=== PATIENT | female | born 1950 | race Caucasian/White ===

== ENCOUNTER 2020-11-08 12:27 | Outpatient (CLI) | payer MEDICARE, SELFPAY ==
[2020-11-08 13:34] LABS: Anion Gap 6 mmol/L (8-16); Blood Urea Nitrogen 19 mg/dL (7-17); Carbon Dioxide 31 mmol/L (22-30); Chloride 103 mmol/L (98-107); Estimated Glomerular Filt Rate 49; Glucose 163 mg/dL (65-105); Potassium 3.6 mmol/L (3.4-5.0); Sodium 140 mmol/L (137-145)
== END 2020-11-08 12:28 | disposition home or self-care (01) ==
PROVIDERS: PCP Physician Assistant; Visit Provider Nurse Practitioner Adult Health
DX: I50.22 Chronic systolic (congestive) heart failure (principal)
CPT/HCPCS: 36415; 80048

== ENCOUNTER 2021-09-30 10:29 | Emergency (ER) | payer MEDICARE, SELFPAY ==
--- NOTE | ~2021-09-30 | XR_ITS ---
EXAMINATION: XR chest 1V portable DATE: 09/30/2021 11:53 INDICATION: Cough and dyspnea TECHNIQUE: frontal view of the chest was obtained. COMPARISON: Chest radiograph dated 07/06/[address] dated 08/04/2019 FINDINGS: Opacity along the inferior right heart border which appears to correspond to small paracardial fat pa d on prior CT. No other airspace opacities, pulmonary edema, pleural effusion or pneumothorax. Heart size within normal limits for AP technique. Moderate degenerative skeletal changes at the bilateral s houlders. IMPRESSION: 1. No acute cardiopulmonary disease. Reviewed, dictated and finalized at location [facility]. SETTER HELPER
[2021-09-30 10:40] VITALS: BP 145/67; PULSE 98; RESP 22; TEMP 37.5; O2SAT 92
--- NOTE | 2021-09-30 11:26 | ED.URI ---
HPI - URI/Sore Throat General Chief Complaint: Upper Respiratory Infection Stated Complaint: sob Time Seen by Provider: 09/30/21 11:26 Source: patient Mode of arrival: wheelchair Limitations: no limitations History of Present Illness HPI Narrative: Patient is a 71-year-old female presenting for evaluation of multiple symptoms including fever, shortness of breath, sore throat, myalgias. Patient states she has been feeling unwell over the past week. Initial sick contact with her son-in-law who she states tested negative for Covid. Patient's daughter has also been sick with similar symptoms. Patient has been vaccinated but has not received booster vaccination. She reports fever of 101 Fahrenheit at home, dry cough with shortness of breath and wheezing. Patient reports shortness of breath worsens with exertion. She denies leg swelling but reports myalgias and bilateral calf pain. She denies chest or abdominal pain. She denies diarrhea. She denies loss of sense of taste or smell. She does report aching right ear pain without discharge from the ear. No swelling behind the ear. No swollen lymph nodes that she has noticed. She also reports sore throat and rhinorrhea. Related Data Home Medications Medication Instructions Recorded Confirmed Entresto 1 tablet PO DAILY 08/11/19 08/15/19 Xarelto 20 mg PO QPM 08/11/19 08/15/19 cyanocobalamin (vitamin B-12) 1,000 mcg PO DAILY 08/11/19 08/15/19 duloxetine 60 mg PO QNOON 08/11/19 08/15/19 furosemide 40 mg PO DAILY 08/11/19 08/15/19 metformin 500 mg PO DAILY 08/11/19 08/15/19 metoprolol succinate 25 mg PO DAILY 08/11/19 08/15/19 Allergies Allergy/AdvReac Type Severity Reaction Status Date / Time Cephalosporins Allergy Severe Rash/swelli Verified 08/15/19 11:12 ng Penicillins Allergy Severe RASH/SWELLI Verified 08/15/19 11:12 NG Review of Systems Review of Systems: CONSTITUTIONAL: Reports fever and chills EYES: Denies visual changes, redness, or discharge. ENT: Reports rhinorrhea, congestion, sore throat, right ear pain CARDIOVASCULAR: Denies chest pain, palpitations, or edema. RESPIRATORY: Reports cough and shortness of breath GASTROINTESTINAL: Denies abdominal pain, reports nausea, denies diarrhea GENITOURINARY: Denies dysuria or hematuria. SKIN: Denies rash or itching. MUSCULOSKELETAL: Denies back pain, joint pain, reports myalgias NEUROLOGIC: Denies headache, numbness, reports feeling diffusely weak PMFSH Past Medical History Medical History Atrial fibrillation CHF (congestive heart failure) Depression Diabetes type 2, controlled Hypertension Renal stones Exam Narrative: GENERAL: Awake, alert, fatigued appearing HEAD: Normocephalic, atraumatic. EYES: PERRLA and EOMI. ENT: Nares clear, no rhinorrhea or epistaxis. Mucous membranes dry. Right TM is normal without perforation, bulging, effusion. Left TM is also normal with intact light reflex, no bulging, perforation or effusion. NECK: Supple. CHEST: No respiratory distress, oxygen saturation 90 to 92% on room air, when sitting, decreases to 90%, no significant tachypnea, coarse expiratory wheezing bilaterally HEART: Borderline tachycardic rate, sinus rhythm ABDOMEN:Non distended, non tender EXTREMITIES: Normal range of motion. No edema. SKIN: Warm, dry, no rash. NEURO:No focal deficits. Alert and oriented x3 Course Vital Signs Vital signs: Vital Signs Temperature 37.5 C 09/30/21 10:40 Pulse Rate 98 09/30/21 10:40 Respiratory Rate 22 H 09/30/21 10:40 Blood Pressure 145/67 H 09/30/21 10:40 Pulse Oximetry 92 09/30/21 10:40 Temperature 37.5 C 09/30/21 10:40 Pulse Rate 89 09/30/21 12:03 Respiratory Rate 18 09/30/21 12:03 Blood Pressure 145/67 H 09/30/21 10:40 Pulse Oximetry 92 09/30/21 10:40 MDM - URI/Sore Throat MDM Narrative Medical decision making narrative: Patient presented for evaluation of shortness of amilcar
--- NOTE | 2021-09-30 11:35 | ECG_ITS ---
Measurements Intervals [place] Rate: 87 P: 53 AR: 140 QRS: -26 QRSD: 123 T: 73 QT: 354 QTc: 427 Interpretive Statements SINUS RHYTHM LEFT BUNDLE BRANCH BLOCK BASELINE ARTIFACT- I, III, AVL ABNORMAL ECG Electronically Signed On 09-30-2021 11:54:22 [employer] by Nikolay Leong D.O.
[2021-09-30 11:53] LABS: Basophils Percent Auto 0.2 % (0.2-1.2); Eosinophils Percent Auto 0.2 % (0-4.4); Hematocrit 40.5 % (37.0-47.0); Hemoglobin 13.2 g/dL (12.0-15.0); Immature Granulocyte Absolute 0.02 K/mm3 (0.00-0.031); Immature Granulocyte Percent A 0.3 % (0-0.5); Lymphocytes Absolute Auto 1.24 K/mm3 (0.9-3.2); Lymphocytes Percent Auto 21.1 % (18.3-44.2); Mean Corpuscular HGB Conc 32.6 g/dl (32-36); Mean Corpuscular Hemoglobin 28.4 pg (26-34); Mean Corpuscular Volume 87.3 fl (80-100); Mean Platelet Volume 9.5 fl (7.4-10.4); Monocytes Absolute Auto 0.8 K/mm3 (0.1-0.6); Monocytes Percent Auto 13.6 % (2.6-8.5); Neutrophils Absolute Auto 3.8 K/mm3 (1.3-6.7); Neutrophils Percent Auto 64.6 % (45.5-73.1); Platelet Count Result 176 k/mm3 (150-375); Red Blood Count 4.64 M/mm3 (4.2-5.4); Red Cell Distribution Width 13.2 % (11.5-14.5); White Blood Count 5.9 K/mm3 (4.5-10.0)
[2021-09-30] MEDS: IPRATROPIUM BR 0.02% INH SOLN 0.5 MG/2.5 ML VIAL INHALATION (11:54)
[2021-09-30] MEDS: ALBUTEROL SULFATE NEB 2.5 MG/0.5 ML INH 5 MG INHALATION (11:54)
[2021-09-30 11:55] VITALS: PULSE 87; RESP 18
[2021-09-30 12:03] VITALS: PULSE 89; RESP 18
[2021-09-30 12:06] LABS: Alanine Aminotransferase 11 U/L (4-35); Albumin Level 3.9 g/dL (3.5-5.1); Alkaline Phosphatase 75 U/L (38-126); Anion Gap 12 mmol/L (8-16); Aspartate Amino Transferase 26 U/L (14-36); Bilirubin,Total 0.6 mg/dL (0.2-1.3); Blood Urea Nitrogen 10 mg/dL (7-17); CRP 7.4 mg/dL (<1.0); Calcium 8.6 mg/dL (8.4-10.2); Carbon Dioxide 22 mmol/L (22-30); Chloride 103 mmol/L (98-107); Estimated Glomerular Filt Rate 55; Glucose 157 mg/dL (65-110); Potassium 3.4 mmol/L (3.4-5.0); Sodium 137 mmol/L (137-145)
[2021-09-30 12:12] LABS: D Dimer 0.88 ug/mL (<0.48)
[2021-09-30 12:15] LABS: EDCOVIDSCREEN Positive (Negative)
[2021-09-30 12:16] LABS: NT Pro B Type Natriuretic Pept 459 pg/mL (5-100); Troponin I 0.023 ng/mL (0.000-0.034)
--- NOTE | 2021-09-30 12:46 | PC.NURSE ---
entered patients room to start iv and found patient sitting in chair fully redressed. patient states she wants no further testing and just wants to go home. patient requested to be put into a wheelchair and taken to door to wait for her ride. refused to sign AMA papers or to stay for further treatment or to talk to erp
== END 2021-09-30 13:09 | disposition left against medical advice (07) ==
PROVIDERS: Emergency Provider Emergency Medicine; PCP Physician Assistant
DX: U07.1 COVID-19 (principal); R06.00 Dyspnea, unspecified; E11.9 Type 2 diabetes mellitus without complications; I50.9 Heart failure, unspecified; I11.0 Hypertensive heart disease with heart failure; I48.91 Unspecified atrial fibrillation; Z87.442 Personal history of urinary calculi; Z79.01 Long term (current) use of anticoagulants; Z79.84 Long term (current) use of oral hypoglycemic drugs; I44.7 Left bundle-branch block, unspecified
CPT/HCPCS: 36415; 71045; 80053; 83880; 84484; 85025; 85380; 86140; 87081; 87426; 87804; 87880; 93005; 94640; 99284; C9803

== ENCOUNTER 2021-10-02 15:33 | Inpatient (IN) | payer MEDICARE, SELFPAY ==
--- NOTE | ~2021-10-02 | CT_ITS ---
EXAMINATION: CTA chest PE protocol DATE: 10/03/2021 02:46 INDICATION: Shortness of breath. Elevated d-dimer. TECHNIQUE: Computed tomography angiography (CTA) of the chest was performed with 100 mL Omnipaque-350 intravenous contrast timed to evaluate the pulmonary arteries. Coronal maximum intensity projection 3D-reconstructions were created by the technologist. Automated exposure control and iterative reconst ruction technique were employed. Exam dose: 728.64 mGy-cm total exam DLP. COMPARISON: 10/03/2021 portable AP chest 01/12/2016 CTA chest FINDINGS: There is diagnostic contrast enhancement of the pulmonary arteries and no evidence of pulmo nary embolism. No thoracic aortic aneurysm or dissection. Normal heart size. No pericardial or pleural effusion. No hilar or mediastinal mass lesion or lymphadenopathy. There are scattered patchy bilateral groundglass infiltrate, including foci in both upper lobes and d ependent lower aspect of the left lower lobe and more extensive infiltrate throughout much of the rig ht lower lobe. Couple small nonobstructing left kidney stones are suggested. Normal morphology of the adrenal glands. Diffuse idiopathic skeletal hyperostosis of the cervical, thoracic and lumbar spine. No suspicious osteolytic or osteoblastic lesions. IMPRESSION: Bilateral pulmonary infiltrates, right greater left, suggesting viral Covid pneumonia No CT evidence of pulmonary embolism Reviewed, dictated and finalized at [facility]. Reviewed, dictated and finalized at location A. HIC ILLUSTRATOR IMPRESSION: Bilateral pulmonary infiltrates, right greater left, suggesting vi ral Covid pneumonia No CT evidence of pulmonary embolism
--- NOTE | ~2021-10-02 | XR_ITS ---
XR chest 1V portable DATE: 10/03/2021 00:52 INDICATION: Chest pain, Covid-positive. History of hypertension. TECHNIQUE: Portable upright AP chest on 10/03/2021 0047 hours COMPARISON: 10/17/2021 portable AP chest at 1147 hours FINDINGS: Heart size appears within normal range. No hilar or mediastinal enlargement. Possible mild infiltrate or atelectasis primarily in the lower lung zones. No pleural effusion, pulmo nary vascular congestion or pneumothorax is evident. Diffuse osteopenia. Osteoarthritis at right glenohumeral joint. Degenerative change at the right acro mioclavicular joint. IMPRESSION: Possible mild infiltrate or atelectasis primarily in the lower lung zones Reviewed, dictated and finalized at location A. STOS CEMENT SHEET SUPERVISOR
[2021-10-02 15:51] VITALS: BP 145/83; PULSE 85; RESP 16; TEMP 36.7; O2SAT 93
[2021-10-02 19:13] VITALS: BP 162/80; PULSE 85; TEMP 36.5; O2SAT 96
[2021-10-02 22:27] VITALS: BP 149/67; PULSE 92; O2SAT 92
[2021-10-03] VITALS (15 sets, daily range): BP systolic 96–146; BP diastolic 33–84; PULSE 72–97; RESP 16–34; TEMP 36.2–38; O2SAT 87–99; BMI 42.3
--- NOTE | 2021-10-03 00:40 | ED.GENADULT ---
HPI - General Adult General Chief complaint: Upper Respiratory Infection Stated complaint: COVID + SOB Time Seen by Provider: 10/03/21 00:38 Source: patient Mode of arrival: EMS Limitations: no limitations History of Present Illness HPI narrative: Patient is a 71-year-old female complaining of shortness of breath, worse with exertion accompanied by generalized weakness, fatigue, body aches that started 3 days ago. Patient states that she was diagnosed with Covid pneumonia 3 days ago and was advised to be admitted but refused. Patient denies any chest pain, abdominal pain, nausea, vomiting, diarrhea, fever or chills. Related Data Allergies Allergy/AdvReac Type Severity Reaction Status Date / Time Penicillins Allergy Hives Verified 10/03/21 00:40 Review of Systems Review of Systems: All systems reviewed & are unremarkable except as noted in HPI and below Constitutional: Constitutional: Denies chills, Denies excessive sweating, Denies fever(s), Denies headache(s), Denies lethargy and Denies weight loss Eyes: Eyes: Denies blurry vision, Denies change in vision and Denies loss of vision ENT: Denies dizziness, Denies ear discharge, Denies headache(s), Denies lip swelling, Denies epistaxis, Denies nasal congestion, Denies neck pain, Denies throat swelling and Denies tongue swelling Cardiovascular: Cardiovascular: Denies chest pain, Denies chest pain at rest, Denies chest pain with activity, Denies diaphoresis, Denies rapid heart rate, Denies edema, Denies irregular heart rhythm, Denies lightheadedness and Denies palpitations Respiratory: Respiratory: Denies chest congestion and Denies hemoptysis Gastrointestinal: Gastrointestinal: Denies abdominal pain, Denies melena, Denies hematochezia, Denies diarrhea, Denies nausea, Denies vomiting and Denies hematemesis Musculoskeletal: Musculoskeletal: Denies abnormal gait, Denies deformity, Denies joint swelling, Denies limited range of motion, Denies neck pain and Denies numbness Neurologic: Denies Abnormal speech present, Denies abnormal gait, Denies confusion, Denies dizziness, Denies headache(s), Denies focal weakness, Denies loss of vision, Denies numbness, Denies Other visual disturbances, Denies Sensory deficit (Neuro) and Denies weakness Psychiatric: Psychiatric: Denies confusion, Denies depression, Denies auditory hallucinations, Denies homicidal ideation and Denies suicidal ideation Endocrine: Endocrine: Denies cold intolerance, Denies excessive sweating, Denies fatigue, Denies heat intolerance and Denies palpitations Hematologic/Lymphatic: Hematologic/Lymphatic: Denies easy bleeding and Denies easy bruising Allergic/Immunologic: Allergic/Immunologic: Denies lip swelling, Denies throat swelling and Denies tongue swelling PMFSH Comments Past medical history: Hypertension, congestive heart failure Family history: Hypertension Social history: Non-smoker no EtOH use, lives at home Exam Const: General: ill appearing Nutritional Appearance: well nourished Orientation/consciousness: oriented to person, oriented to place, oriented to time, patient oriented x3 and No confusion Limitations: no limitations Other: Moderate distress HENMT: Head: normal to inspection, normocephalic and atraumatic Ears: hearing grossly normal bilaterally, TM normal on the right and TM normal on the left General nose exam: Normal external nose present, Normal nares present and No nasal discharge present Face and sinus: normal facial exam Mouth: Yes Normal oral and palatal mucosa present, Yes lip normal, Yes tongue normal and Yes oropharynx normal Throat: posterior oropharynx normal, tonsils normal and uvula midline Eyes: General: appearance normal, both eyes and all related structures Pupils: Equal, round and reactive pupils present EOM: EOMs intact bilaterally Neck: Neck: normal visual inspection, full ROM, no lymphadenopathy and no meningeal signs Chest: Chest palpation & inspection: normal inspection of the
[2021-10-03] MEDS: ALBUTEROL SULFATE NEB 2.5 MG/0.5 ML INH 5 MG INHALATION ×3 (01:21→14:37)
[2021-10-03] MEDS: IPRATROPIUM BR 0.02% INH SOLN 0.5 MG/2.5 ML VIAL INHALATION ×3 (01:21→14:37)
[2021-10-03 01:52] LABS: Basophils Percent Auto 0.2 % (0.2-1.2); Hematocrit 39.9 % (37.0-47.0); Immature Granulocyte Absolute 0.01 K/mm3 (0.00-0.031); Immature Granulocyte Percent A 0.2 % (0-0.5); Lymphocytes Absolute Auto 1.34 K/mm3 (0.9-3.2); Lymphocytes Percent Auto 26.6 % (18.3-44.2); Mean Corpuscular HGB Conc 32.6 g/dl (32-36); Mean Corpuscular Hemoglobin 28.4 pg (26-34); Mean Corpuscular Volume 87.3 fl (80-100); Mean Platelet Volume 10.4 fl (7.4-10.4); Monocytes Absolute Auto 0.5 K/mm3 (0.1-0.6); Monocytes Percent Auto 9.9 % (2.6-8.5); Neutrophils Absolute Auto 3.2 K/mm3 (1.3-6.7); Neutrophils Percent Auto 63.1 % (45.5-73.1); Platelet Count Result 201 k/mm3 (150-375); Red Blood Count 4.57 M/mm3 (4.2-5.4); Red Cell Distribution Width 13.5 % (11.5-14.5)
[2021-10-03 02:03] LABS: D Dimer 0.88 ug/mL (<0.48)
[2021-10-03 02:04] LABS: Lactic Acid Reflex 1.3 mmol/L (0.7-2.1)
[2021-10-03 02:08] LABS: Alanine Aminotransferase 11 U/L (4-35); Albumin Level 4.1 g/dL (3.5-5.1); Alkaline Phosphatase 66 U/L (38-126); Anion Gap 12 mmol/L (8-16); Aspartate Amino Transferase 34 U/L (14-36); Bilirubin,Total 0.7 mg/dL (0.2-1.3); Blood Urea Nitrogen 9 mg/dL (7-17); Calcium 8.7 mg/dL (8.4-10.2); Carbon Dioxide 27 mmol/L (22-30); Chloride 99 mmol/L (98-107); Estimated CRCL calculation 58 ml/min; Estimated Glomerular Filt Rate > 60; Glucose 119 mg/dL (65-110); Potassium 3.3 mmol/L (3.4-5.0); Sodium 138 mmol/L (137-145)
[2021-10-03 02:14] LABS: NT Pro B Type Natriuretic Pept 168 pg/mL (5-100)
[2021-10-03 02:18] LABS: Troponin I 0.017 ng/mL (0.000-0.034)
[2021-10-03] MEDS: POTASSIUM CHLORIDE 20 MEQ PACKET (FOR LIQUID) PO (03:12)
[2021-10-03 04:49] LABS: Alveolar/Arterial O2 Gradient 96.1 mmHg; Base Excess ABG -2.5 mEq/l (+/-2.0); Fractional Inspired Oxygen 28 %; HCO3 ABG 21.7 mEq/l (22.0-26.0); Methemoglobin ABG 0.4 %THb (0-1.5); Oxygen Saturation ABG 91.8 % (95.0-100.0); Oxyhemoglobin 91.4 % THb (90.0-100.0); PCO2 ABG 35.6 mmHg (35.0-45.0); PO2 ABG 61.5 mmHg (80.0-100.0); Reduced Hemoglobin 8.2 %THb (0-5.0); Total Hemoglobin 13.2 g/dL (12.0-18.0); pH ABG 7.402 (7.350-7.450)
[2021-10-03 04:50] LABS: Device NASAL CANNULA; Modified Allen's Test Pass; Site Drawn LEFT RADIAL
--- NOTE | 2021-10-03 04:54 | PM.IMHP ---
H&P: HPI History of Present Illness Date/Time: 10/03/21 04:54 Chief Complaint: Generalized malaise. Narrative: This is a 71-year-old female with past medical history significant for morbid obesity. Patient presents to the emergency room due to generalized malaise, fatigue, shortness of breath, cough, poor appetite, body aches and pains, chills ,fevers, Meds Home Medications and Allergies Allergies Allergy/AdvReac Type Severity Reaction Status Date / Time Penicillins Allergy Hives Verified 10/03/21 00:40 Vital Signs Vital Signs - 24 hr 10/02/21 15:51 10/02/21 19:13 10/02/21 22:27 Temperature 98.1 F 97.7 F Pulse Rate 85 85 92 Respiratory Rate 16 Blood Pressure 145/83 H 162/80 H 149/67 H Pulse Oximetry 93 96 92 10/03/21 00:29 10/03/21 01:16 10/03/21 01:25 Temperature 98.8 F Pulse Rate 97 91 95 Respiratory Rate 22 H 34 H 21 H Blood Pressure 142/58 H 146/69 H Pulse Oximetry 95 95 10/03/21 01:40 10/03/21 03:04 10/03/21 04:00 Temperature Pulse Rate 97 93 89 Respiratory Rate 28 H 20 26 H Blood Pressure 115/53 L 108/56 L Pulse Oximetry 93 87 L H&P: Results Labs Labs: Short CBC 10/03/21 Range/Units 01:21 WBC 5.0 (4.5-10.0) K/mm3 Hgb 13.0 (12.0-15.0) g/dL Hct 39.9 (37.0-47.0) % Plt Count 201 (150-375) k/mm3 [facility] 10/03/21 01:21 Sodium 138 Potassium 3.3 L Chloride 99 Carbon Dioxide 27 BUN 9 Creatinine 0.90 Glucose 119 H Calcium 8.7 Cardiac Enzymes 10/03/21 Range/Units 01:21 Troponin I 0.017 (0.000-0.034) ng/mL Liver Function 10/03/21 Range/Units 01:21 Total Bilirubin 0.7 (0.2-1.3) mg/dL AST 34 (14-36) U/L ALT 11 (4-35) U/L Alkaline Phosphatase 66 (38-126) U/L Albumin 4.1 (3.5-5.1) g/dL Assessment and Plan Assessment and plan (1) Acute respiratory failure with hypoxia: Code(s): J96.01 - Acute respiratory failure with hypoxia Status: Acute Assessment and Plan: Patient placed on supplemental oxygen by nasal cannula Continue to monitor Trend keep oxygen saturation at 94% (2) Pneumonia due to 2019 novel coronavirus: Code(s): U07.1 - COVID-19; J12.82 - Pneumonia due to coronavirus disease 2019 Status: Acute Assessment and Plan: Patient started on Rocephin and Zithromax Started on remdesivir and dexamethasone Supportive care (3) Morbid obesity with BMI of 40.0-44.9, adult: Code(s): E66.01 - Morbid (severe) obesity due to excess calories; Z68.41 - Body mass index [BMI] 40.0-44.9, adult Status: Acute Assessment and Plan: Lifestyle and diet modifications
--- NOTE | 2021-10-03 05:27 | PM.IMHP ---
H&P: HPI History of Present Illness Date/Time: 10/03/21 05:27 Chief Complaint: Generalized malaise. Narrative: This is a 71-year-old female with past medical history significant for type 2 diabetes mellitus, morbid obesity, patient presented to the emergency room due to generalized malaise, poor appetite, chills, fevers. She had been to the emergency room 3 days ago and she tested positive for COVID but refused to be admitted to the hospital now she returns due to worsening shortness of breath and fatigue. In emergency room preliminary testing showed an elevated D-dimer a CT angio of the chest did not show acute pulmonary embolism but showed ground-glass opacities present in both lung voss. Patient denies any nausea, any vomiting, any abdominal pain, any diarrhea, any syncope, near syncope, lightheadedness, dizziness. In emergency room patient require supplemental oxygen by nasal cannula. Patient is been admitted for further evaluation management and treatment Review of Systems Review of Systems: Generalized malaise fevers rigors chills poor appetite Constitutional: Constitutional: Reports chills, Reports fatigue, Reports fever(s), Reports lethargy, Reports malaise and Reports poor appetite Eyes: Eyes: Denies change in vision ENT: Denies dysphagia, Denies nasal congestion, Denies nasal discharge, Denies nasal obstruction and Denies odynophagia Cardiovascular: Cardiovascular: Denies pedal edema, Denies edema, Denies claudication, Denies leg edema, Denies lightheadedness, Denies radiating jaw, neck or arm pain, Denies palpitations, Denies dyspnea on exertion and Denies orthopnea Respiratory: Respiratory: Denies change in phlegm color, Reports cough, Denies excessive phlegm production and Reports dyspnea Gastrointestinal: Gastrointestinal: Denies abdominal pain, Denies dyspepsia, Denies heartburn, Denies diarrhea, Denies nausea and Denies vomiting Genitourinary: Genitourinary: Denies dysuria Musculoskeletal: Musculoskeletal: Denies arthralgias and Denies joint swelling Integumentary/Breasts: Skin/Breast: Denies rash Neurologic: Denies focal weakness and Denies Sensory deficit (Neuro) Psychiatric: Psychiatric: Reports no additional psychiatric complaints and Reports as per HPI Endocrine: Endocrine: Denies polydipsia, Denies polyuria and Denies palpitations Hematologic/Lymphatic: Hematologic/Lymphatic: Reports no additional hematologic/lymphatic complaints and Reports as per HPI Allergic/Immunologic: Allergic/Immunologic: Reports no additional allergic/immunologic complaints and Reports as per HPI Meds Home Medications and Allergies Allergies Allergy/AdvReac Type Severity Reaction Status Date / Time Penicillins Allergy Hives Verified 10/03/21 00:40 Vital Signs Vital Signs - 24 hr 10/02/21 15:51 10/02/21 19:13 10/02/21 22:27 Temperature 98.1 F 97.7 F Pulse Rate 85 85 92 Respiratory Rate 16 Blood Pressure 145/83 H 162/80 H 149/67 H Pulse Oximetry 93 96 92 10/03/21 00:29 10/03/21 01:16 10/03/21 01:25 Temperature 98.8 F Pulse Rate 97 91 95 Respiratory Rate 22 H 34 H 21 H Blood Pressure 142/58 H 146/69 H Pulse Oximetry 95 95 10/03/21 01:40 10/03/21 03:04 10/03/21 04:00 Temperature Pulse Rate 97 93 89 Respiratory Rate 28 H 20 26 H Blood Pressure 115/53 L 108/56 L Pulse Oximetry 93 87 L 10/03/21 05:14 Temperature Pulse Rate 82 Respiratory Rate 24 H Blood Pressure 129/74 Pulse Oximetry 96 Exam Narrative: Patient is laying in rkemmerer Const: General: cooperative, comfortable, no acute distress, well developed, alert, awake, Physically active and ill appearing acutely Nutritional Appearance: obese morbidly obese Orientation/consciousness: patient oriented x3 HENMT: Head: normal to inspection, normocephalic and atraumatic Ears: hearing grossly normal bilaterally General nose exam: Normal external nose present Face and sinus: normal facial exam Mouth: Yes Normal oral and palatal muc
--- NOTE | 2021-10-03 06:00 | ADMGEN ---
This patient, Lillie Brito, was admitted to [facility] Surg Room 329-01. Patient/family oriented to hospital policies and general routines including ID bracelet, bed and alarms, visiting hours, pain management, procedures, bathroom and other care routines, personal items, smoking policy, room service/diet, and visiting hours. Information on how to activate the Rapid Response Team has been discussed. Patient/Family are encouraged to report perceived risks to care and to ask questions if they do not understand what they are told or what they should do.
[2021-10-03] MEDS: REMDESIVIR 200 MG/NS 250 ML 200 MG/250 ML BAG 250 MG IVPB (06:43)
[2021-10-03 07:21] LABS: Alanine Aminotransferase 10 U/L (4-35); Estimated CRCL calculation 58 ml/min; Estimated Glomerular Filt Rate > 60
[2021-10-03 07:27] LABS: INR 1.5; Prothrombin Time 17.5 Seconds (11.1-14.7)
[2021-10-03 08:17] LABS: Glucose Point of Care 214 mg/dl (65-105)
[2021-10-03 11:24] LABS: Hemoglobin A1C 7.5 % (<5.7)
[2021-10-03 11:39] LABS: CRP 13.5 mg/dL (<1.0); Lactate Dehydrogenase 750 U/L (313-618)
[2021-10-03 11:41] LABS: Glucose Point of Care 336 mg/dl (65-105)
--- NOTE | 2021-10-03 12:10 | PM.IMPN ---
Progress Note: A&P Assessment and Plan (1) Acute respiratory failure with hypoxia: Code(s): J96.01 - Acute respiratory failure with hypoxia Status: Acute Assessment and Plan: Found to be hypoxic on presentation down 87%. Secondary to COVID-19 pneumonia. CTA negative for PE. Continue supplemental O2 as needed with goal saturation 92% or above. Wean to goal. Currently requiring 1 L per nasal cannula (2) Pneumonia due to 2019 novel coronavirus: Code(s): U07.1 - COVID-19; J12.82 - Pneumonia due to coronavirus disease 2019 Status: Acute Assessment and Plan: Positive antigent on 09/30/21 with symptom onset 4 days prior. CTA shows bilateral pulmonary infiltrates Continue isolation precautions Proceed with confirmatory PCR testing Continue dexamethasone and remdesivir, 1st dose today. Monitor LFTs well on remdesivir Supportive care to include bronchodilators, expectorants, antipyretics, incentive spirometry Trend acute phase reactants Will discontinue azithromycin at this time as no signs or symptoms to suggest secondary bacterial pneumonia She did complete vaccination for COVID-19 but has not received booster yet (3) CHF (congestive heart failure): Code(s): I50.9 - Heart failure, unspecified Status: Acute Assessment and Plan: She appears generally euvolemic on exam. Continue furosemide 40 mg daily Continue metoprolol and Entresto Monitor volume status (4) Atrial fibrillation: Code(s): I48.91 - Unspecified atrial fibrillation Status: Acute Assessment and Plan: Rate is controlled at this time Continue Xarelto Continue metoprolol (5) Type 2 diabetes mellitus: Code(s): E11.9 - Type 2 diabetes mellitus without complications Status: Acute Assessment and Plan: A1c is 7.5. Blood sugars are elevated with addition of steroids Will initiate Lantus while on steroids Start Accu-Cheks, high-dose sliding scale insulin, hypoglycemic protocol Consider addition of scheduled NovoLog with meals if blood sugars remain elevated Monitor glucose trends and adjust medication regimen as needed Subjective Date/time seen: 10/03/21 12:10 Interval history: Date of service: 10/03/2021 Lillie Brito is a 71-year-old female is a 71 year old female with a history of diabetes mellitus, CHF, atrial fibrillation on chronic anticoagulation who is seen in follow-up for COVID-19 pneumonia. She is feeling a little bit better today. Still with dyspnea that she notices is worse if she gets up and moves around. She has been able to ambulate with her walker but activity does make her more short of breath. She is coughing and endorses phlegm but has not been able to get anything up. She denies nausea, vomiting, fever, or chills. No palpitations. Denies chest pain. She has been eating fairly well. Denies anosmia or dysgeusia. She did have diarrhea this morning. No abdominal pain. No urinary symptoms. Review of Systems Review of Systems: All systems reviewed & are unremarkable except as noted in HPI and below Exam Narrative: Ms. Brito is an obese, well-appearing 71-year-old female who is sitting up at the bedside. She appears comfortable and is in NARD. Neuro: awake, alert and oriented x4, speech clear, no focal neuro deficits noted HEENMT: normocephalic, atraumatic, EOMI, sclerae anicteric Neck: supple, no lymphadenopathy Respiratory: clear to auscultation bilaterally, nonlabored breathing Cardio: regular rate, regular rhythm with S1-S2 Abdomen: Obese, normoactive bowel sounds, soft, nontender to palpation Extremities: Trace edema of the lower extremities, no erythema or tenderness to palpation, DP pulses 2+ bilaterally Skin: no rashes or lesions, warm and dry Psych: appropriate mood and affect, judgment and insight intact Objective Data Vital Signs Vital Signs: Vital Signs - 24 hr 10/02/21 15:51 10/02/21 19:13
[2021-10-03] MEDS: METOPROLOL SUCCINATE EXT REL 25 MG TABCR PO (13:01)
[2021-10-03] MEDS: FUROSEMIDE 40 MG TABLET PO (13:02)
[2021-10-03] MEDS: guaiFENesin 12 HR 600 MG TABCR PO ×2 (13:02→20:47)
[2021-10-03] MEDS: metFORMIN HCL XR 500 MG TAB.SR.24H PO (13:02)
[2021-10-03 17:12] LABS: Glucose Point of Care 268 mg/dl (65-105)
[2021-10-03] MEDS: INSULIN ASPART (*BKC) 100 UNITS/ML SUB-Q (17:47)
[2021-10-03] MEDS: RIVAROXABAN 20 MG TABLET PO (17:48)
[2021-10-03] MEDS: INSULIN GLARGINE (*BKC) 100 UNITS/ML 16 UNITS SUB-Q (20:50)
[2021-10-03 21:45] LABS: Glucose Point of Care 211 mg/dl (65-105)
--- NOTE | 2021-10-03 23:31 | PCRCNOTE ---
Nebulizer treatment scheduled for 10/03/21 at 20:00 not administered. RT not available during administration window due to priorities in Emergency Department.
[2021-10-04] VITALS (12 sets, daily range): BP systolic 113–140; BP diastolic 52–60; PULSE 66–91; RESP 16–22; TEMP 36.5–36.9; O2SAT 94–97
[2021-10-04] MEDS: IPRATROPIUM BR 0.02% INH SOLN 0.5 MG/2.5 ML VIAL INHALATION ×3 (02:32→19:31)
[2021-10-04] MEDS: ALBUTEROL SULFATE NEB 2.5 MG/0.5 ML INH 5 MG INHALATION ×3 (02:32→19:31)
[2021-10-04] MEDS: DEXAMETHASONE 2 MG TABLET 6 MG PO (05:14)
[2021-10-04] MEDS: LEVOTHYROXINE SODIUM 25 MCG TABLET PO (05:14)
[2021-10-04 07:23] LABS: Hematocrit 38.1 % (37.0-47.0); Hemoglobin 12.1 g/dL (12.0-15.0); Mean Corpuscular HGB Conc 31.8 g/dl (32-36); Mean Corpuscular Hemoglobin 28.1 pg (26-34); Mean Corpuscular Volume 88.4 fl (80-100); Mean Platelet Volume 9.5 fl (7.4-10.4); Platelet Count Result 217 k/mm3 (150-375); Red Blood Count 4.31 M/mm3 (4.2-5.4); Red Cell Distribution Width 13.4 % (11.5-14.5); White Blood Count 7.7 K/mm3 (4.5-10.0)
[2021-10-04 07:34] LABS: INR 2.2; Prothrombin Time 23.8 Seconds (11.1-14.7)
[2021-10-04 08:18] LABS: Glucose Point of Care 232 mg/dl (65-105)
[2021-10-04 08:49] LABS: Alanine Aminotransferase 12 U/L (4-35); Albumin Level 3.4 g/dL (3.5-5.1); Alkaline Phosphatase 59 U/L (38-126); Anion Gap 6 mmol/L (8-16); Aspartate Amino Transferase 29 U/L (14-36); Bilirubin,Total 0.4 mg/dL (0.2-1.3); Blood Urea Nitrogen 21 mg/dL (7-17); CRP 8.2 mg/dL (<1.0); Calcium 9.1 mg/dL (8.4-10.2); Carbon Dioxide 30 mmol/L (22-30); Chloride 103 mmol/L (98-107); Estimated CRCL calculation 54 ml/min; Estimated Glomerular Filt Rate 55; Glucose 239 mg/dL (65-110); Lactate Dehydrogenase 648 U/L (313-618); Potassium 3.8 mmol/L (3.4-5.0); Sodium 139 mmol/L (137-145)
[2021-10-04] MEDS: SACUBITRIL/VALSARTAN 49-51 MG TABLET 1 TABLET PO (08:50)
[2021-10-04] MEDS: metFORMIN HCL XR 500 MG TAB.SR.24H PO (08:50)
[2021-10-04] MEDS: METOPROLOL SUCCINATE EXT REL 25 MG TABCR PO (08:51)
[2021-10-04] MEDS: guaiFENesin 12 HR 600 MG TABCR PO ×2 (08:51→20:21)
[2021-10-04] MEDS: FUROSEMIDE 40 MG TABLET PO (08:51)
[2021-10-04] MEDS: INSULIN ASPART (*BKC) 100 UNITS/ML SUB-Q ×4 (08:51→18:21)
[2021-10-04 09:38] LABS: SARS-CoV-2 RNA PCR Positive
[2021-10-04] MEDS: REMDESIVIR 100 MG/NS 250 ML 100 MG/250 ML BAG 250 MG IVPB (11:26)
[2021-10-04 12:51] LABS: Glucose Point of Care 277 mg/dl (65-105)
--- NOTE | 2021-10-04 14:13 | PM.IMPN ---
Progress Note: A&P Assessment and Plan (1) Acute respiratory failure with hypoxia: Code(s): J96.01 - Acute respiratory failure with hypoxia Status: Acute Assessment and Plan: Found to be hypoxic on presentation down to 87%. Secondary to COVID-19 pneumonia. CTA negative for PE. Continue supplemental O2 as needed with goal saturation 92% or above. Wean to goal. Currently requiring 1 L per nasal cannula (2) Pneumonia due to 2019 novel coronavirus: Code(s): U07.1 - COVID-19; J12.82 - Pneumonia due to coronavirus disease 2019 Status: Acute Assessment and Plan: Positive antigent on 09/30/21 with symptom onset 4 days prior. Confirmatory PCR positive 10/04/21. CTA shows bilateral pulmonary infiltrates Continue isolation precautions Continue dexamethasone and remdesivir #2. Monitor LFTs while on remdesivir Supportive care to include bronchodilators, expectorants, antipyretics, incentive spirometry Trend acute phase reactants She did complete vaccination for COVID-19 but has not received booster yet (3) CHF (congestive heart failure): Code(s): I50.9 - Heart failure, unspecified Status: Acute Assessment and Plan: She appears euvolemic on exam. Continue furosemide 40 mg daily Continue metoprolol and Entresto Monitor volume status (4) Atrial fibrillation: Code(s): I48.91 - Unspecified atrial fibrillation Status: Acute Assessment and Plan: Rate is controlled at this time Continue Xarelto Continue metoprolol (5) Type 2 diabetes mellitus: Code(s): E11.9 - Type 2 diabetes mellitus without complications Status: Acute Assessment and Plan: A1c is 7.5. Blood sugars are elevated with addition of steroids Continue lantus while on steroids. Increase to 18 units qHS Add novolog 5 units scheduled with meals Accu-Cheks, high-dose sliding scale insulin, hypoglycemic protocol Monitor glucose trends and adjust medication regimen as needed (6) Nosebleed: Code(s): R04.0 - Epistaxis Status: Acute Assessment and Plan: Secondary to nasal swab Bleeding resolved [place] nasal spray for dry nasal passages Hgb is stable. Continue to monitor Subjective Date/time seen: 10/04/21 14:13 Interval history: Date of service: 10/04/2021 Lillie Brito is a 71-year-old female is a 71 year old female with a history of diabetes mellitus, CHF, atrial fibrillation on chronic anticoagulation who is seen in follow-up for COVID-19 pneumonia. She tells me that she had an eventful night last night. When she was being swabbed for COVID, she had a nose bleed that she said lasted for about 30 minutes. It sounds like she had a little clot that was dislodged and she had quite a bit of bleeding. She said someone came in to suction it and then it drain down her throat and she was spitting out some blood. Bleeding has resolved and she has not had any further episodes of nose bleeds. She denies any other bleeding including hemoptysis, hematuria, hematemesis, hematochezia, melena. She is feeling a bit more short of breath today and is coughing frequently. Cough is nonproductive. She endorses dyspnea on exertion. Also complains of dry mouth. She is eating and drinking well. Denies abdominal pain, nausea, vomiting, fever, chills, dizziness, lightheadedness, chest pain, palpitations. No further episodes of diarrhea. She has not had a bowel movement this morning. She asked me to call her daughter, Latoya to provide updates. I was not able to reach her but I left a message. Review of Systems Review of Systems: All systems reviewed & are unremarkable except as noted in HPI and below Exam Narrative: Ms. Brito is an obese, well-appearing 71-year-old female who is sitting up at the bedside. She appears comfortable and is in NARD. Neuro: awake, alert and oriented x4, speech clear, no focal neuro deficits noted HEENMT: normoc
[2021-10-04 16:57] LABS: Glucose Point of Care 229 mg/dl (65-105)
[2021-10-04] MEDS: RIVAROXABAN 20 MG TABLET PO (18:21)
[2021-10-04] MEDS: INSULIN GLARGINE (*BKC) 100 UNITS/ML 18 UNITS SUB-Q (20:22)
[2021-10-04 21:53] LABS: Glucose Point of Care 292 mg/dl (65-105)
[2021-10-05] VITALS (10 sets, daily range): BP systolic 100–138; BP diastolic 40–70; PULSE 54–76; RESP 14–22; TEMP 35.5–36.4; O2SAT 93–98
[2021-10-05] MEDS: LEVOTHYROXINE SODIUM 25 MCG TABLET PO (06:10)
[2021-10-05 08:42] LABS: Glucose Point of Care 260 mg/dl (65-105)
[2021-10-05] MEDS: metFORMIN HCL XR 500 MG TAB.SR.24H PO (09:10)
[2021-10-05] MEDS: SACUBITRIL/VALSARTAN 49-51 MG TABLET 1 TABLET PO (09:10)
[2021-10-05] MEDS: METOPROLOL SUCCINATE EXT REL 25 MG TABCR PO (09:10)
[2021-10-05] MEDS: guaiFENesin 12 HR 600 MG TABCR PO ×2 (09:10→21:37)
[2021-10-05] MEDS: FUROSEMIDE 40 MG TABLET PO (09:11)
[2021-10-05] MEDS: DEXAMETHASONE 2 MG TABLET 6 MG PO (09:11)
[2021-10-05] MEDS: INSULIN ASPART (*BKC) 100 UNITS/ML SUB-Q ×5 (09:12→18:07)
[2021-10-05 11:11] LABS: Glucose Point of Care 290 mg/dl (65-105)
[2021-10-05 12:52] LABS: Hematocrit 37.3 % (37.0-47.0); Mean Corpuscular HGB Conc 32.2 g/dl (32-36); Mean Corpuscular Hemoglobin 27.8 pg (26-34); Mean Corpuscular Volume 86.5 fl (80-100); Platelet Count Result 277 k/mm3 (150-375); Red Blood Count 4.31 M/mm3 (4.2-5.4); Red Cell Distribution Width 13.3 % (11.5-14.5); White Blood Count 7.7 K/mm3 (4.5-10.0)
[2021-10-05 13:04] LABS: INR 1.8; Prothrombin Time 20.1 Seconds (11.1-14.7)
[2021-10-05 13:07] LABS: Alanine Aminotransferase 13 U/L (4-35); Albumin Level 3.2 g/dL (3.5-5.1); Alkaline Phosphatase 57 U/L (38-126); Anion Gap 6 mmol/L (8-16); Aspartate Amino Transferase 24 U/L (14-36); Bilirubin,Total 0.4 mg/dL (0.2-1.3); Blood Urea Nitrogen 26 mg/dL (7-17); CRP 3.8 mg/dL (<1.0); Carbon Dioxide 28 mmol/L (22-30); Chloride 104 mmol/L (98-107); Estimated CRCL calculation 59 ml/min; Estimated Glomerular Filt Rate > 60; Glucose 264 mg/dL (65-110); Potassium 3.5 mmol/L (3.4-5.0); Sodium 138 mmol/L (137-145)
--- NOTE | 2021-10-05 14:11 | PM.IMPN ---
Progress Note: A&P Assessment and Plan (1) Acute respiratory failure with hypoxia: Code(s): J96.01 - Acute respiratory failure with hypoxia Status: Acute Assessment and Plan: Found to be hypoxic on presentation down to 87%. Secondary to COVID-19 pneumonia. CTA negative for PE. Continue supplemental O2 as needed with goal saturation 92% or above. Wean to goal. Currently requiring 1 L per nasal cannula (2) Pneumonia due to 2019 novel coronavirus: Code(s): U07.1 - COVID-19; J12.82 - Pneumonia due to coronavirus disease 2019 Status: Acute Assessment and Plan: Positive antigen test on 09/30/21 with symptom onset 4 days prior. Confirmatory PCR positive 10/04/21. CTA shows bilateral pulmonary infiltrates Continue isolation precautions Continue dexamethasone and remdesivir #3. Monitor LFTs while on remdesivir Supportive care to include bronchodilators, expectorants, antipyretics, incentive spirometry Trend acute phase reactants She did complete vaccination for COVID-19 but has not received booster yet (3) CHF (congestive heart failure): Code(s): I50.9 - Heart failure, unspecified Status: Acute Assessment and Plan: She appears euvolemic on exam. Continue furosemide 40 mg daily Continue metoprolol and Entresto Monitor volume status (4) Atrial fibrillation: Code(s): I48.91 - Unspecified atrial fibrillation Status: Acute Assessment and Plan: Rate is controlled at this time Continue Xarelto Continue metoprolol (5) Type 2 diabetes mellitus: Code(s): E11.9 - Type 2 diabetes mellitus without complications Status: Acute Assessment and Plan: A1c is 7.5. Blood sugars are elevated with addition of steroids Continue lantus while on steroids. Increase to 21 units qHS Add novolog 5 units scheduled with meals Accu-Cheks, high-dose sliding scale insulin, hypoglycemic protocol Monitor glucose trends and adjust medication regimen as needed (6) Nosebleed: Code(s): R04.0 - Epistaxis Status: Acute Assessment and Plan: On 10/03/20 secondary to nasal swab Bleeding resolved [place] nasal spray for dry nasal passages Hgb is stable. Continue to monitor Okay to continue xarelto. No further bleeding Subjective Date/time seen: 10/05/21 14:11 Interval history: Date of service: 10/05/2021 Lillie Brito is a 71-year-old female is a 71 year old female with a history of diabetes mellitus, CHF, atrial fibrillation on chronic anticoagulation who is seen in follow-up for COVID-19 pneumonia. She is doing well today. She does endorse feeling short of breath, especially if she begins talking. She says ?I feel like I just can not get my air. She participated in therapy today and said she was able to do everything they asked her to do. She felt comfortable getting up and getting around. No more nose bleeding. Denies any episodes of bleeding including melena, hematochezia, hematuria. She does have a mild frontal headache. She also complains of some sinus congestion. She has been eating pretty well. Denies nausea, vomiting, abdominal pain. No diarrhea. No chest pain. Review of Systems Review of Systems: All systems reviewed & are unremarkable except as noted in HPI and below Exam Narrative: Ms. Brito is an obese, well-appearing 71-year-old female who is sitting up at the bedside. She appears comfortable and is in NARD. Neuro: awake, alert and oriented x4, speech clear, no focal neuro deficits noted HEENMT: normocephalic, atraumatic, EOMI, sclerae anicteric Neck: supple, no lymphadenopathy Respiratory: clear to auscultation bilaterally, nonlabored breathing Cardio: regular rate, regular rhythm with S1-S2 Abdomen: Obese, normoactive bowel sounds, soft, nontender to palpation Extremities: Trace edema of the lower extremities, no erythema or tenderness to palpation, DP pulses 2+ bilaterally Skin:
[2021-10-05] MEDS: REMDESIVIR 100 MG/NS 250 ML 100 MG/250 ML BAG 250 MG IVPB (14:44)
[2021-10-05 16:51] LABS: Glucose Point of Care 159 mg/dl (65-105)
[2021-10-05] MEDS: RIVAROXABAN 20 MG TABLET PO (18:08)
[2021-10-05 20:42] LABS: Glucose Point of Care 280 mg/dl (65-105)
[2021-10-05] MEDS: INSULIN GLARGINE (*BKC) 100 UNITS/ML 21 UNITS SUB-Q (21:37)
[2021-10-06] VITALS (7 sets, daily range): BP systolic 119–134; BP diastolic 49–65; PULSE 50–78; RESP 14–20; TEMP 35.9–36.9; O2SAT 94–99
[2021-10-06] MEDS: LEVOTHYROXINE SODIUM 25 MCG TABLET PO (07:03)
[2021-10-06 07:22] LABS: Hematocrit 38.6 % (37.0-47.0); Hemoglobin 12.1 g/dL (12.0-15.0)
[2021-10-06 07:33] LABS: INR 2.2; Prothrombin Time 24.1 Seconds (11.1-14.7)
[2021-10-06 07:38] LABS: Alanine Aminotransferase 10 U/L (4-35); Albumin Level 3.1 g/dL (3.5-5.1); Alkaline Phosphatase 58 U/L (38-126); Anion Gap 8 mmol/L (8-16); Aspartate Amino Transferase 24 U/L (14-36); Bilirubin,Total 0.4 mg/dL (0.2-1.3); Blood Urea Nitrogen 29 mg/dL (7-17); Calcium 8.7 mg/dL (8.4-10.2); Carbon Dioxide 28 mmol/L (22-30); Chloride 104 mmol/L (98-107); Estimated CRCL calculation 54 ml/min; Estimated Glomerular Filt Rate 55; Glucose 217 mg/dL (65-110); Potassium 3.6 mmol/L (3.4-5.0); Sodium 140 mmol/L (137-145)
[2021-10-06] MEDS: DEXAMETHASONE 2 MG TABLET 6 MG PO (09:52)
[2021-10-06] MEDS: metFORMIN HCL XR 500 MG TAB.SR.24H PO (09:52)
[2021-10-06] MEDS: SACUBITRIL/VALSARTAN 49-51 MG TABLET 1 TABLET PO (09:53)
[2021-10-06] MEDS: METOPROLOL SUCCINATE EXT REL 25 MG TABCR PO (09:53)
[2021-10-06] MEDS: FUROSEMIDE 40 MG TABLET PO (09:53)
[2021-10-06] MEDS: guaiFENesin 12 HR 600 MG TABCR PO ×2 (09:53→20:53)
[2021-10-06] MEDS: INSULIN ASPART (*BKC) 100 UNITS/ML SUB-Q ×3 (10:07→13:58)
[2021-10-06] MEDS: REMDESIVIR 100 MG/NS 250 ML 100 MG/250 ML BAG 250 MG IVPB (10:16)
--- NOTE | 2021-10-06 10:57 | PM.IMPN ---
Progress Note: A&P Assessment and Plan (1) Acute respiratory failure with hypoxia: Code(s): J96.01 - Acute respiratory failure with hypoxia Status: Acute Assessment and Plan: Found to be hypoxic on presentation down to 87%. Secondary to COVID-19 pneumonia. CTA negative for PE. Continue supplemental O2 as needed with goal saturation 92% or above. Wean to goal. Currently requiring 1 L per nasal cannula Plan for home O2 eval tomorrow after completion of Remdesivir #5 if continued improvement (2) Pneumonia due to 2019 novel coronavirus: Code(s): U07.1 - COVID-19; J12.82 - Pneumonia due to coronavirus disease 2019 Status: Acute Assessment and Plan: Positive antigen test on 09/30/21 with symptom onset 4 days prior. Confirmatory PCR positive 10/04/21. CTA shows bilateral pulmonary infiltrates Continue isolation precautions Continue dexamethasone and remdesivir #4. Monitor LFTs while on remdesivir. ALT is normal. Supportive care to include bronchodilators, expectorants, antipyretics, incentive spirometry Trend acute phase reactants She did complete vaccination for COVID-19 but has not received booster yet (3) CHF (congestive heart failure): Code(s): I50.9 - Heart failure, unspecified Status: Acute Assessment and Plan: She appears euvolemic on exam. Continue furosemide 40 mg daily Continue metoprolol and Entresto Monitor volume status (4) Atrial fibrillation: Code(s): I48.91 - Unspecified atrial fibrillation Status: Acute Assessment and Plan: Rate controlled Continue Xarelto Continue metoprolol (5) Type 2 diabetes mellitus: Code(s): E11.9 - Type 2 diabetes mellitus without complications Status: Acute Assessment and Plan: A1c is 7.5. Blood sugars are elevated with steroids Continue lantus while on steroids. Increase to 21 units qHS Novolog 6 units scheduled with meals Accu-Cheks, high-dose sliding scale insulin, hypoglycemic protocol Monitor glucose trends and adjust medication regimen as needed (6) Nosebleed: Code(s): R04.0 - Epistaxis Status: Acute Assessment and Plan: On 10/03/20 secondary to nasal swab Bleeding resolved [place] nasal spray for dry nasal passages Hgb is stable. Continue to monitor Okay to continue xarelto. No further bleeding Subjective Date/time seen: 01/09/22 10:57 Interval history: Date of service: 10/06/2021 Lillie Brito is a 71-year-old female with a history of diabetes mellitus, CHF, atrial fibrillation on chronic anticoagulation who is seen in follow-up for COVID-19 pneumonia. Feels okay today. She complains of nasal congestion. Her dyspnea has improved. She reports her cough is also improved and now only has coughing spells when she has increased activity. This morning she had a hard time swallowing with her breakfast. She states that she was reclining in her bed and felt the food ?got stuck.? She says she sometimes has similar episodes and she often eats reclining in bed. Discussed sitting upright, chewing well, and taking sips between bites. She had trouble sleeping last night which she thinks is due to being on steroids. She had a small formed stool this morning. No urinary symptoms. No further nosebleeds and denies any other bleeding. Review of Systems Review of Systems: All systems reviewed & are unremarkable except as noted in HPI and below Exam Narrative: Ms. Birto is an obese, well-appearing 71-year-old female who is sitting up at the bedside. She appears comfortable and is in NARD. Neuro: awake, alert and oriented x4, speech clear, no focal neuro deficits noted HEENMT: normocephalic, atraumatic, EOMI, sclerae anicteric Neck: supple, no lymphadenopathy Respiratory: clear to auscultation bilaterally, nonlabored breathing Cardio: regular rate, regular rhythm with S1-S2 Abdomen: Obese, normoactive bowel sounds, soft, nonte
[2021-10-06 11:50] LABS: Glucose Point of Care 201 mg/dl (65-105)
[2021-10-06] MEDS: INSULIN ASPART (*BKC) 100 UNITS/ML 6 UNITS SUB-Q ×2 (13:57→18:10)
[2021-10-06 17:32] LABS: Glucose Point of Care 237 mg/dl (65-105)
[2021-10-06] MEDS: RIVAROXABAN 20 MG TABLET PO (18:11)
[2021-10-06 18:39] LABS: Glucose Point of Care 310 mg/dl (65-105)
[2021-10-06] MEDS: INSULIN GLARGINE (*BKC) 100 UNITS/ML 21 UNITS SUB-Q (20:59)
[2021-10-06 22:53] LABS: Glucose Point of Care 274 mg/dl (65-105)
[2021-10-07 04:00] VITALS: BP 128/64; PULSE 47; RESP 16; TEMP 35.9; O2SAT 96
[2021-10-07] MEDS: LEVOTHYROXINE SODIUM 25 MCG TABLET PO (06:09)
[2021-10-07 08:00] VITALS: BP 127/62; PULSE 49; PULSE 50; RESP 16; RESP 21; TEMP 35.6; O2SAT 94; O2SAT 96
[2021-10-07 08:28] LABS: Glucose Point of Care 180 mg/dl (65-105)
[2021-10-07] MEDS: INSULIN ASPART (*BKC) 100 UNITS/ML 6 UNITS SUB-Q ×2 (08:38→12:26)
[2021-10-07] MEDS: metFORMIN HCL XR 500 MG TAB.SR.24H PO (08:38)
[2021-10-07] MEDS: DEXAMETHASONE 2 MG TABLET 6 MG PO (08:38)
[2021-10-07 08:40] VITALS: PULSE 44
[2021-10-07] MEDS: guaiFENesin 12 HR 600 MG TABCR PO (08:40)
--- NOTE | 2021-10-07 09:17 | PC.NURSE ---
HR 44 all b/p medication held this morning called provider Ashia Vincent. Awaiting call back.
[2021-10-07 12:00] VITALS: BP 121/52; PULSE 50; RESP 16; TEMP 35.6; O2SAT 94
[2021-10-07 12:00] LABS: Glucose Point of Care 254 mg/dl (65-105)
[2021-10-07] MEDS: INSULIN ASPART (*BKC) 100 UNITS/ML SUB-Q (12:26)
--- NOTE | 2021-10-07 13:25 | PC.NURSE ---
Pt daughter requesting walker like pt is using at hospital, transferred to care coordination for further information about DME.
[2021-10-07] MEDS: REMDESIVIR 100 MG/NS 250 ML 100 MG/250 ML BAG 250 MG IVPB (14:06)
--- NOTE | 2021-10-07 14:19 | PCPTNOTE ---
Patient refused treatment this session. Patient reported she wanted to get new IV put in and PT can come back.
[2021-10-07 14:23] LABS: Hematocrit 44.5 % (37.0-47.0); Hemoglobin 14.4 g/dL (12.0-15.0); Mean Corpuscular HGB Conc 32.4 g/dl (32-36); Mean Corpuscular Hemoglobin 28.3 pg (26-34); Mean Corpuscular Volume 87.6 fl (80-100); Mean Platelet Volume 10.3 fl (7.4-10.4); Platelet Count Result 431 k/mm3 (150-375); Red Blood Count 5.08 M/mm3 (4.2-5.4); Red Cell Distribution Width 13.2 % (11.5-14.5); White Blood Count 10.6 K/mm3 (4.5-10.0)
[2021-10-07 14:30] LABS: INR 1.7
[2021-10-07 14:37] LABS: Alanine Aminotransferase 17 U/L (4-35); Albumin Level 3.9 g/dL (3.5-5.1); Alkaline Phosphatase 68 U/L (38-126); Anion Gap 15 mmol/L (8-16); Aspartate Amino Transferase 27 U/L (14-36); Bilirubin,Total 0.6 mg/dL (0.2-1.3); Blood Urea Nitrogen 30 mg/dL (7-17); Calcium 9.2 mg/dL (8.4-10.2); Carbon Dioxide 25 mmol/L (22-30); Chloride 102 mmol/L (98-107); Estimated CRCL calculation 54 ml/min; Estimated Glomerular Filt Rate 55; Glucose 281 mg/dL (65-110); Potassium 3.8 mmol/L (3.4-5.0); Sodium 142 mmol/L (137-145)
[2021-10-07] MEDS: PHARMACIST COMMUNICATION ORDER 1 EACH XX (14:58)
[2021-10-07 15:02] VITALS: O2SAT 89; O2SAT 94
--- NOTE | 2021-10-07 15:03 | PCRCNOTE ---
Pt does not require oxygen when resting or with movement. Pt is good to go home with out any oxygen.
--- NOTE | 2021-10-07 15:29 | PC.NURSE ---
Ashia Oakes informed that pt doesn't require home o2. Pt will be discharging awaiting orders.
[2021-10-07 15:55] LABS: Glucose Point of Care 263 mg/dl (65-105)
[2021-10-07 15:59] VITALS: BP 138/75; PULSE 62; RESP 18; TEMP 36.1; O2SAT 95
--- NOTE | 2021-10-07 16:45 | PM.DS ---
DS: Admitting Diagnosis Discharge Date 10/07/2021 Admitting Diagnosis COVID-19 pneumonia DS: Discharge Diagnosis Discharge Diagnosis (1) Acute respiratory failure with hypoxia: Code(s): J96.01 - Acute respiratory failure with hypoxia Status: Acute Assessment and Plan: Found to be hypoxic on presentation down to 87%. Secondary to COVID-19 pneumonia. CTA negative for PE. She required up to 2 L supplemental O2 but was able to wean to room air. Home O2 eval performed prior to discharge with no ongoing oxygen requirements. (2) Pneumonia due to 2019 novel coronavirus: Code(s): U07.1 - COVID-19; J12.82 - Pneumonia due to coronavirus disease 2019 Status: Acute Assessment and Plan: Positive antigen test on 09/30/21 with symptom onset 4 days prior. Confirmatory PCR positive 10/04/21. CTA showed bilateral pulmonary infiltrates. She completed 5 days of dexamethasone and remdesivir. LFTs remained normal. Supportive care provided including bronchodilators, expectorants, antipyretics, and incentive spirometry. She was able to weaned from oxygen had symptomatic improvement. She had completed her COVID-19 vaccination but has received her booster. Follow-up PCP to schedule. (3) CHF (congestive heart failure): Code(s): I50.9 - Heart failure, unspecified Status: Acute Assessment and Plan: Remained clinically compensated. Continue home regimen of furosemide 40 mg daily, metoprolol, Entresto (4) Atrial fibrillation: Code(s): I48.91 - Unspecified atrial fibrillation Status: Acute Assessment and Plan: Rate was controlled. Continue Xarelto and metoprolol (5) Type 2 diabetes mellitus: Code(s): E11.9 - Type 2 diabetes mellitus without complications Status: Acute Assessment and Plan: A1c is 7.5. Blood sugars were elevated with steroids. Started on Lantus during hospitalization given steroids and scheduled NovoLog with meals as well as sliding scale insulin. Expect blood sugars will improve following cessation of steroids. Continue home metformin (6) Nosebleed: Code(s): R04.0 - Epistaxis Status: Acute Assessment and Plan: On 10/03/20 provoked by nasal swab for COVID PCR. Bleeding resolved and hemoglobin remains stable. Xarelto was continued and she had no further bleeding. DS: Summary Hospital Course Hospital Course: Date of admission: 10/03/2021 Date of discharge: 10/07/2021 Lillie Brito is a 71-year-old female with a history of diabetes mellitus, CHF, atrial fibrillation on chronic anticoagulation who presented to the emergency department on 10/03/2021 with complaints of increased shortness of breath after testing positive for COVID 3 days prior. On presentation to the emergency department, her vital signs were stable, she was afebrile, CBC unremarkable, potassium 3.3, additional electrolytes stable, and CXR showed possible mild infiltrate primarily in the lower lungs. She was admitted to the hospitalist service for further evaluation and management. Please see above for further details. She had symptomatic improvement following treatment with dexamethasone and remdesivir and had no ongoing oxygen requirements. She was feeling improved and requested discharge home. She was determined to be medically stable. She has support at home with her daughter. I discussed with the patient necessary COVID-19 precautions. Also discussed worrisome signs and symptoms for which to return and she was educated on her medications. She was discharged in hemodynamically stable condition on 10/07/2021. Status at Discharge Functional status at discharge: independent ambulation Overall status at discharge: patient is progressing back to baseline Time Spent with Patient Time attestation: Total time spent providing and/or coordinating discharge services: 45 minutes Time spent: Greater than 30 minutes Exam Narrative: Ms. Fuller
== END 2021-10-07 16:45 | disposition home health service (06) | DRG 177 ==
LOC: ANHED 10-03 04:13 → ANH3MEDSUR 10-03 05:03
PROVIDERS: Admitting Provider Internal Medicine; Emergency Provider Emergency Medicine; PCP Physician Assistant; Visit Provider Physician Assistant
DX: U07.1 COVID-19 (principal); J12.82 Pneumonia due to coronavirus disease 2019; J96.01 Acute respiratory failure with hypoxia; Z68.41 Body mass index [BMI] 40.0-44.9, adult; E66.01 Morbid (severe) obesity due to excess calories; E11.9 Type 2 diabetes mellitus without complications; I50.9 Heart failure, unspecified; I48.91 Unspecified atrial fibrillation; R04.0 Epistaxis; Z79.01 Long term (current) use of anticoagulants; Z79.84 Long term (current) use of oral hypoglycemic drugs; Z79.899 Other long term (current) drug therapy; Z88.0 Allergy status to penicillin
CPT/HCPCS: 36415; 36600; 71045; 71275; 80053; 82375; 82565; 82728; 82805; 82948; 83036; 83050; 83605; 83615; 83880; 84132; 84460; 84484; 85014; 85018; 85025; 85027; 85380; 85610; 86140; 87081; 87426; 87804; 87880; 93005; 94618; 94640; 97110; 97162; 97165; 99284; 99285; A9270; C9803; J0456; J1100; J1815; J8540; Q9967; U0003; U0005

== ENCOUNTER 2021-10-15 11:13 | Inpatient (IN) | payer MEDICARE, SELFPAY ==
[2021-10-15] VITALS (29 sets, daily range): BP systolic 115–158; BP diastolic 53–87; PULSE 78–103; RESP 15–32; TEMP 36.2–36.9; O2SAT 84–97; BMI 37.2
--- NOTE | ~2021-10-15 | XR_ITS ---
EXAMINATION: XR chest 1V portable DATE: 10/15/2021 15:33 INDICATION: Shortness of breath. Cough. TECHNIQUE: A single frontal view of the chest was obtained. COMPARISON: Chest single view 10/03/2021, chest CT 10/03/2021 FINDINGS: There are patchy airspace opacities in all right lung zones and in left upper and lower maegan g zones. No pleural effusion or pneumothorax. The heart size is normal. IMPRESSION: 1. Worsened multifocal lung disease, consistent with COVID-19 pneumonia. Reviewed, dictated and finalized at location A. WAY MAN
--- NOTE | ~2021-10-15 | CT_ITS ---
EXAMINATION: CTA chest PE protocol DATE: 10/15/2021 17:26 INDICATION: Shortness of breath. Cough. TECHNIQUE: Computed tomography angiography (CTA) of the chest was performed with 100 mL Omnipaque-350 intravenous contrast timed to evaluate the pulmonary arteries. Coronal maximum intensity projection 3D-reconstructions were created by the technologist. Automated exposure control and iterative reconst ruction technique were employed. The dose-length product was 954.12 mGy-cm. COMPARISON: Chest CT 10/03/21 FINDINGS: There are patchy airspace and groundglass opacities with air bronchograms involving all lob es. There is a trace right pleural effusion. The heart size is normal. No pericardial effusion. There is cortical thinning of the kidneys. 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 There ar e bridging endplate osteophytes at multiple levels in the spine, consistent with diffuse idiopathic s keletal hyperostosis (DISH). IMPRESSION: 1. Worsened diffuse lung disease, consistent with pneumonia. 2. No pulmonary embolus. Reviewed, dictated and finalized at location A. TRY PROCESSING SUPERVISOR
--- NOTE | ~2021-10-15 | XR_ITS ---
XR chest 1V portable 10/21/2021 12:43 Indication: Pneumonia. Procedure: AP portable chest Comparison: Comparison to multiple prior studies sequentially, with oldest reviewed study dated 11/2021. Findings: There is patchy right-sided airspace disease with masslike appearance in the right lung bas e, compatible with pneumonia. Heart size normal. No significant effusion or pneumothorax. No acute os seous abnormality. Impression: 1: Patchy right-sided airspace consolidation, compatible with pneumonia. Reviewed, dictated and finalized at location B. [employer] TRUCK DRIVER Impression: 1: Patchy right-sided airspace consolidation, compatible with pneumonia.
--- NOTE | ~2021-10-15 | XR_ITS ---
EXAMINATION: XR chest 1V portable INDICATION: Pneumonia and shortness of breath TECHNIQUE: Portable AP chest at 1449 hours COMPARISON: 10/15/2021 FINDINGS: Airspace opacities of the right lung persist but have improved. Airspace opacities in the l eft lung base have increased. The cardiomediastinal silhouette is stable. There is no pleural effusio n or pneumothorax. IMPRESSION: 1. Improved airspace opacities on the right and worsening airspace opacities of the left lung base, c onsistent with COVID 19 pneumonia. Reviewed, dictated and finalized at location F. PRODUCTION SUPERVISOR IMPRESSION: 1. Improved airspace opacities on the right and worsening airspace opacities of the left lung base, consistent with COVID 19 pneumonia.
--- NOTE | 2021-10-15 15:19 | ECG_ITS ---
Measurements Intervals [place] Rate: 80 P: 44 WV: 150 QRS: -37 QRSD: 128 T: 167 QT: 379 QTc: 439 Interpretive Statements SINUS RHYTHM LEFT AXIS DEVIATION INTRAVENTRICULAR CONDUCTION DELAY CANNOT RULE OUT SEPTAL INFARCT, AGE INDETERMINATE BORDERLINE ST-T WAVE ABNORMALITY- DIFFUSE LEADS BASELINE ARTIFACT- I, II, AVR, AVL, AVF, V1-V2 ABNORMAL ECG Electronically Signed On 10-15-2021 18:16:55 [employer] by Nikolay Leong D.O.
--- NOTE | 2021-10-15 15:25 | ED.GENADULT ---
HPI - General Adult General Chief complaint: Shortness of Breath/Dyspnea Stated complaint: low o2 Time Seen by Provider: 10/15/21 15:19 Source: patient and RN notes reviewed History of Present Illness HPI narrative: Patient is a 71 y/o female complaining of moderate SOB for 1 week. She states that sitting down and taking deep breath helps. She has no fever, chest pain or leg swelling. She has some cough. She was recently admitted and treated for COVID pneumonia. She states that home care nurse found her sat low and contacted her physician. She was thus instructed to come to ED for further evaluation. Related Data Home Medications Medication Instructions Recorded Confirmed Entresto 1 tablet PO DAILY 08/11/19 08/15/19 Xarelto 20 mg PO QPM 08/11/19 08/15/19 cyanocobalamin (vitamin B-12) 1,000 mcg PO DAILY 08/11/19 08/15/19 duloxetine 60 mg PO QNOON 08/11/19 08/15/19 furosemide 40 mg PO DAILY 08/11/19 08/15/19 metformin 500 mg PO DAILY 08/11/19 08/15/19 metoprolol succinate 25 mg PO DAILY 08/11/19 08/15/19 Entresto 1 tablet PO DAILY 10/03/21 10/03/21 Trulicity 1.5 mg SUBCUT WEEKLY 10/03/21 10/03/21 Xarelto 20 mg PO DAILY 10/03/21 10/03/21 duloxetine 60 mg PO DAILY 10/03/21 10/03/21 furosemide 40 mg PO DAILY 10/03/21 10/03/21 levothyroxine 25 mcg PO DAILY 10/03/21 10/03/21 metformin 500 mg PO DAILY 10/03/21 10/03/21 metoprolol succinate 25 mg PO DAILY 10/03/21 10/03/21 triamcinolone acetonide 1 applic TOPICAL DAILY PRN 10/03/21 10/03/21 Allergies Allergy/AdvReac Type Severity Reaction Status Date / Time Cephalosporins Allergy Severe Rash/swelli Verified 10/04/21 11:39 ng Penicillins Allergy Hives Verified 10/04/21 11:39 Review of Systems Constitutional: Constitutional: Denies chills, Denies fever(s), Denies headache(s) and Denies weakness Eyes: Eyes: Denies blurry vision ENT: Denies headache(s) and Denies neck pain Cardiovascular: Cardiovascular: Denies chest pain and Reports dyspnea Respiratory: Respiratory: Reports cough and Reports dyspnea Gastrointestinal: Gastrointestinal: Denies abdominal pain, Denies diarrhea, Denies nausea and Denies vomiting Genitourinary: Genitourinary: Denies hematuria and Denies dysuria Musculoskeletal: Musculoskeletal: Denies back pain and Denies neck pain Neurologic: Denies headache(s) and Denies weakness [facility] Past Medical History Medical History Atrial fibrillation Atrial fibrillation CHF (congestive heart failure) CHF (congestive heart failure) Depression Diabetes type 2, controlled Hypertension Renal stones Type 2 diabetes mellitus Family History Family History Son Diabetes mellitus Grandparent Diabetes mellitus Father Manic-depressive disorder ETOH abuse Social History Social History Smoking status: Never smoker Alcohol intake: never Substance use: never Spiritual care concerns: No Exam Const: General: no acute distress and well developed Orientation/consciousness: oriented to person, oriented to place, oriented to time and patient oriented x3 HENMT: Head: normocephalic Ears: external ears normal General nose exam: Normal external nose present Eyes: General: appearance normal, both eyes and all related structures Conjunctivae: conjunctivae normal Neck: Neck: normal visual inspection and full ROM Chest: Chest palpation & inspection: normal inspection of the chest and no tenderness Resp: Effort & Inspection: normal respiratory effort Auscultation: clear to auscultation bilaterally Cardio: Rate: regular rate Rhythm: regular rhythm GI: GI Palp: No abdominal tenderness and Yes Soft to palpation Skin: General skin exam: normal color and turgor normal Neuro: General: oriented to person, oriented to place, oriented to time and patient oriented x3 Cognition (Neuro): normal cognition
[2021-10-15 15:58] LABS: Basophils Absolute Auto 0.1 K/mm3 (0.0-0.1); Basophils Percent Auto 0.6 % (0.2-1.2); Eosinophils Absolute Auto 0.2 K/mm3 (0-0.3); Eosinophils Percent Auto 2.4 % (0-4.4); Hematocrit 43.6 % (37.0-47.0); Hemoglobin 13.8 g/dL (12.0-15.0); Immature Granulocyte Absolute 0.05 K/mm3 (0.00-0.031); Immature Granulocyte Percent A 0.6 % (0-0.5); Lymphocytes Absolute Auto 1.77 K/mm3 (0.9-3.2); Lymphocytes Percent Auto 20.2 % (18.3-44.2); Mean Corpuscular HGB Conc 31.7 g/dl (32-36); Mean Corpuscular Volume 88.4 fl (80-100); Monocytes Percent Auto 11.4 % (2.6-8.5); Neutrophils Absolute Auto 5.7 K/mm3 (1.3-6.7); Neutrophils Percent Auto 64.8 % (45.5-73.1); Platelet Count Result 328 k/mm3 (150-375); Red Blood Count 4.93 M/mm3 (4.2-5.4); Red Cell Distribution Width 13.5 % (11.5-14.5); White Blood Count 8.8 K/mm3 (4.5-10.0)
[2021-10-15 16:07] LABS: Alanine Aminotransferase 12 U/L (4-35); Albumin Level 3.3 g/dL (3.5-5.1); Alkaline Phosphatase 83 U/L (38-126); Anion Gap 9 mmol/L (8-16); Aspartate Amino Transferase 18 U/L (14-36); Bilirubin,Total 0.6 mg/dL (0.2-1.3); Blood Urea Nitrogen 10 mg/dL (7-17); Calcium 8.7 mg/dL (8.4-10.2); Carbon Dioxide 29 mmol/L (22-30); Chloride 100 mmol/L (98-107); Estimated CRCL calculation 58 ml/min; Estimated Glomerular Filt Rate > 60; Glucose 190 mg/dL (65-110); Potassium 3.3 mmol/L (3.4-5.0); Sodium 138 mmol/L (137-145)
[2021-10-15 16:16] LABS: NT Pro B Type Natriuretic Pept 183 pg/mL (5-100)
[2021-10-15 16:18] LABS: D Dimer 2.25 ug/mL (<0.48)
--- NOTE | 2021-10-15 20:01 | PM.IMHP ---
H&P: HPI History of Present Illness Date/Time: 10/15/21 20:01 Chief Complaint: Shortness of breath. Narrative: Will this is a 71-year-old female with past medical history significant for atrial fibrillation, congestive heart failure, type 2 diabetes mellitus, hypertension, patient just recently discharged due to COVID-19 pneumonia returns to the emergency room due to worsening shortness of breath that is present at rest as well and cough productive of sputum, home health visiting nurse for her to have a low oxygen saturation and after contacting her physician decided to bring her to the emergency room. Patient has had poor appetite, no nausea, no vomiting, no abdominal pain, no diarrhea, has had chills. Preliminary workup was significant for CT angiogram of the chest did not show acute pulmonary embolism but worsening lung infiltrates. Decision has been made to admit the patient for further evaluation management and treatment. Review of Systems Review of Systems: Shortness of breath, chills, low oxygen saturation, poor appetite. Constitutional: Constitutional: Reports chills, Reports fatigue, Reports fever(s), Reports malaise, Reports poor appetite and Reports weakness Eyes: Eyes: Denies change in vision ENT: Denies dysphagia, Denies nasal congestion, Denies nasal discharge, Denies nasal obstruction and Denies odynophagia Cardiovascular: Cardiovascular: Denies pedal edema, Denies irregular heart rhythm, Denies claudication, Denies leg edema, Denies radiating jaw, neck or arm pain, Denies palpitations, Denies dyspnea on exertion and Denies orthopnea Respiratory: Respiratory: Reports change in phlegm color, Reports cough and Reports dyspnea Gastrointestinal: Gastrointestinal: Denies abdominal pain, Denies dyspepsia, Denies heartburn, Denies diarrhea, Denies nausea and Denies vomiting Genitourinary: Genitourinary: Denies dysuria Musculoskeletal: Musculoskeletal: Denies muscle cramps Integumentary/Breasts: Skin/Breast: Denies rash and Reports other (Bluish purplish discoloration of toes) Neurologic: Denies focal weakness, Denies Sensory deficit (Neuro), Denies tingling and Denies paresthesias Psychiatric: Psychiatric: Reports no additional psychiatric complaints and Reports as per HPI Endocrine: Endocrine: Denies cold intolerance, Denies fatigue, Denies heat intolerance, Denies polyphagia, Denies polydipsia, Denies polyuria and Denies palpitations Hematologic/Lymphatic: Hematologic/Lymphatic: Reports no additional hematologic/lymphatic complaints and Reports as per HPI Allergic/Immunologic: Allergic/Immunologic: Reports no additional allergic/immunologic complaints and Reports as per HPI PMFSH Past Medical History Medical History Atrial fibrillation Atrial fibrillation CHF (congestive heart failure) CHF (congestive heart failure) Depression Diabetes type 2, controlled Hypertension Renal stones Type 2 diabetes mellitus Family History Family History Son Diabetes mellitus Grandparent Diabetes mellitus Father Manic-depressive disorder ETOH abuse Social History Social History Smoking status: Never smoker Alcohol intake: never Substance use: never Spiritual care concerns: No Meds Home Medications and Allergies Home Medications Medication Instructions Recorded Confirmed Type Xarelto 20 mg PO QPM 08/11/19 10/15/21 History metformin 500 mg PO DAILY 08/11/19 10/15/21 History metoprolol succinate 25 mg PO DAILY 08/11/19 10/15/21 History Entresto 1 tablet PO DAILY 10/03/21 10/15/21 History Trulicity 1.5 mg SUBCUT WEEKLY 10/03/21 10/15/21 History duloxetine 60 mg PO QPM 10/03/21 10/15/21 History furosemide 40 mg PO DAILY 10/03/21 10/15/21 History levothyroxine 25 mcg PO DAILY 10/03/21 10/15/21 History triamcinolone acetonide 1 applic TOPICAL DAILY PRN
[2021-10-16] VITALS (11 sets, daily range): BP systolic 109–129; BP diastolic 41–94; PULSE 77–101; RESP 18–20; TEMP 36–36.7; O2SAT 92–94
[2021-10-16 02:44] LABS: INR 2.2; Prothrombin Time 23.7 Seconds (11.1-14.7)
[2021-10-16 02:46] LABS: Alanine Aminotransferase 12 U/L (4-35); Estimated CRCL calculation 50 ml/min; Estimated Glomerular Filt Rate 55
[2021-10-16] MEDS: REMDESIVIR 200 MG/NS 250 ML 200 MG/250 ML BAG 250 MG IVPB (03:50)
[2021-10-16] MEDS: LEVOTHYROXINE SODIUM 25 MCG TABLET PO (06:10)
[2021-10-16 07:21] LABS: Basophils Percent Auto 0.4 % (0.2-1.2); Hematocrit 37.6 % (37.0-47.0); Hemoglobin 11.9 g/dL (12.0-15.0); Immature Granulocyte Absolute 0.05 K/mm3 (0.00-0.031); Immature Granulocyte Percent A 0.6 % (0-0.5); Lymphocytes Absolute Auto 0.45 K/mm3 (0.9-3.2); Lymphocytes Percent Auto 5.6 % (18.3-44.2); Mean Corpuscular HGB Conc 31.6 g/dl (32-36); Mean Corpuscular Hemoglobin 28.3 pg (26-34); Mean Corpuscular Volume 89.3 fl (80-100); Mean Platelet Volume 9.2 fl (7.4-10.4); Monocytes Absolute Auto 0.2 K/mm3 (0.1-0.6); Monocytes Percent Auto 2.4 % (2.6-8.5); Neutrophils Absolute Auto 7.3 K/mm3 (1.3-6.7); Platelet Count Result 297 k/mm3 (150-375); Red Blood Count 4.21 M/mm3 (4.2-5.4); Red Cell Distribution Width 13.6 % (11.5-14.5); White Blood Count 8.1 K/mm3 (4.5-10.0)
--- NOTE | 2021-10-16 07:30 | P.PNIM_ITS ---
Progress Note: A&P Assessment and Plan (1) Acute respiratory failure with hypoxia: Code(s): J96.01 - Acute respiratory failure with hypoxia Status: Acute Assessment and Plan: * Found to be 88% at home * Supplemental oxygen * Wean to maintain saturations greater than 90% * Secondary to COVID (2) Pneumonia due to COVID-19 virus: Code(s): U07.1 - COVID-19; J12.82 - Pneumonia due to coronavirus disease 2018 Status: Acute Assessment and Plan: * Recent treatment of remdesivir and dexamethasone for 5 days * Restart Remdesivir and Decadron Day 2 * Continue Xarelto 20mg PO daily * Albuterol * Inflammatory markers: D-dimer 2.10, ferritin 179, LDH 398, CRP 4.7 * Chest x-ray worsened multi focal lung disease consistent with COVID-19 * CTA shows no PE worsened lung disease consistent with pneumonia * Trend labs * Antibiotics for bacterial coverage * Supplemental oxygen, wean to maintain saturation (3) Healthcare associated bacterial pneumonia: Code(s): J15.9 - Unspecified bacterial pneumonia Status: Acute Assessment and Plan: * Patient with prior admission to hospital CT of the chest with worsening pneum onia * Patient with allergies to penicillins * Change Zithromax and ceftriaxone * blood culture pending * Await cultures * Sputum culture ordered and pending (4) Type 2 diabetes mellitus: Code(s): E11.9 - Type 2 diabetes mellitus without complications Status: Acute Assessment and Plan: * Glucose 448 * Trend labs * Hold metformin and trulicity * Accu cheks AC/HS * Sliding scale * Adjust therapy as indicated (5) Atrial fibrillation: Code(s): I48.91 - Unspecified atrial fibrillation Status: Acute Assessment and Plan: * Rate controlled * Continue Xarelto * See Dr. Williamson outpatient (6) CHF (congestive heart failure): Code(s): I50.9 - Heart failure, unspecified Status: Acute Assessment and Plan: * BNP 182 * Continue metoprolol, furosemide, and entresto * Daily weights * Trend IN/Out * Low sodium diet (7) Hyperglycemia: Code(s): R73.9 - Hyperglycemia, unspecified Status: Acute Assessment and Plan: * Glucose 448 * Secondary to steroids Time Spent With Patient Time with patient: Greater than 35 minutes Subjective Date/time seen: 10/16/21 07:30 Interval history: Date/Time: 10/15/21 20:01 Narrative: Will this is a 71-year-old female with past medical history significant for atrial fibrillation, congestive heart failure, type 2 diabetes mellitus, hypertension, patient just recently discharged due to COVID-19 pneumonia returns to the emergency room due to worsening shortness of breath t hat is present at rest as well and cough productive of sputum, home health visiting nurse for her to have a low oxygen saturation and after contacting her physician decided to bring her to the emergency room. Patient has had poor appetite, no nausea, no vomiting, no abdominal pain, no diarrhea, has had chills. Preliminary workup was significant for CT angiogram of the chest did not show acute pulmonary embolism but worsening lung infiltrates. Decision has been made to admit the patient for further evaluation management and treatment. Date/Time 10/16/21 0730 Patient was getting up to bedside commode when I walked in. She said she has been very short of breath and no interv
--- NOTE | 2021-10-16 07:30 | PM.IMPN ---
Progress Note: A&P Assessment and Plan (1) Acute respiratory failure with hypoxia: Code(s): J96.01 - Acute respiratory failure with hypoxia Status: Acute Assessment and Plan: Found to be 88% at home Supplemental oxygen Wean to maintain saturations greater than 90% Secondary to COVID (2) Pneumonia due to COVID-19 virus: Code(s): U07.1 - COVID-19; J12.82 - Pneumonia due to coronavirus disease 2019 Status: Acute Assessment and Plan: Recent treatment of remdesivir and dexamethasone for 5 days Restart Remdesivir and Decadron Day 2 Continue Xarelto 20mg PO daily Albuterol Inflammatory markers: D-dimer 2.10, ferritin 179, LDH 398, CRP 4.7 Chest x-ray worsened multi focal lung disease consistent with COVID-19 CTA shows no PE worsened lung disease consistent with pneumonia Trend labs Antibiotics for bacterial coverage Supplemental oxygen, wean to maintain saturation (3) Healthcare associated bacterial pneumonia: Code(s): J15.9 - Unspecified bacterial pneumonia Status: Acute Assessment and Plan: Patient with prior admission to hospital CT of the chest with worsening pneumonia Patient with allergies to penicillins Change Zithromax and ceftriaxone blood culture pending Await cultures Sputum culture ordered and pending (4) Type 2 diabetes mellitus: Code(s): E11.9 - Type 2 diabetes mellitus without complications Status: Acute Assessment and Plan: Glucose 448 Trend labs Hold metformin and trulicity Accu cheks AC/HS Sliding scale Adjust therapy as indicated (5) Atrial fibrillation: Code(s): I48.91 - Unspecified atrial fibrillation Status: Acute Assessment and Plan: Rate controlled Continue Xarelto See Dr. Williamson outpatient (6) CHF (congestive heart failure): Code(s): I50.9 - Heart failure, unspecified Status: Acute Assessment and Plan: BNP 182 Continue metoprolol, furosemide, and entresto Daily weights Trend IN/Out Low sodium diet (7) Hyperglycemia: Code(s): R73.9 - Hyperglycemia, unspecified Status: Acute Assessment and Plan: Glucose 448 Secondary to steroids Time Spent With Patient Time with patient: Greater than 35 minutes Subjective Date/time seen: 10/16/21 07:30 Interval history: Date/Time: 10/15/21 20:01 Narrative: Will this is a 71-year-old female with past medical history significant for atrial fibrillation, congestive heart failure, type 2 diabetes mellitus, hypertension, patient just recently discharged due to COVID-19 pneumonia returns to the emergency room due to worsening shortness of breath that is present at rest as well and cough productive of sputum, home health visiting nurse for her to have a low oxygen saturation and after contacting her physician decided to bring her to the emergency room. Patient has had poor appetite, no nausea, no vomiting, no abdominal pain, no diarrhea, has had chills. Preliminary workup was significant for CT angiogram of the chest did not show acute pulmonary embolism but worsening lung infiltrates. Decision has been made to admit the patient for further evaluation management and treatment. Date/Time 10/16/21 2530 Patient was getting up to bedside commode when I walked in. She said she has been very short of breath and no intervention is helping. She was sent to the ED by home health nurse who found her saturations to be 88%. She denies home O2 abnormal swelling urine pain. She does have a cough which she says is dry and she did say that she has an increase in wheezes. Patient denies a smoking history or being around secondhand smoke. Patient stated that her appetite has been not adequate however she is hungry and was able to eat a bag of chips with a sandwich last night. Patient denied chest pain, shortness of breath, nausea, vomiting diarrhea, or
[2021-10-16 07:33] LABS: Alanine Aminotransferase 13 U/L (4-35); Albumin Level 3.3 g/dL (3.5-5.1); Alkaline Phosphatase 76 U/L (38-126); Anion Gap 10 mmol/L (8-16); Aspartate Amino Transferase 19 U/L (14-36); Bilirubin,Total 0.4 mg/dL (0.2-1.3); Blood Urea Nitrogen 12 mg/dL (7-17); CRP 4.7 mg/dL (<1.0); Calcium 8.6 mg/dL (8.4-10.2); Carbon Dioxide 27 mmol/L (22-30); Chloride 96 mmol/L (98-107); Estimated CRCL calculation 50 ml/min; Estimated Glomerular Filt Rate 55; Glucose 448 mg/dL (65-110); Lactate Dehydrogenase 398 U/L (313-618); Magnesium 1.8 mg/dL (1.6-2.3); Potassium 3.6 mmol/L (3.4-5.0); Sodium 133 mmol/L (137-145)
[2021-10-16] MEDS: ALBUTEROL SULFATE (*SP) INHALER 2 PUFF INHALATION ×5 (08:00→23:43)
--- NOTE | 2021-10-16 08:25 | PC.NURSE ---
BS elevated this AM. Provider notified.
[2021-10-16 08:27] LABS: Glucose Point of Care 431 mg/dl (65-105)
[2021-10-16] MEDS: METOPROLOL SUCCINATE EXT REL 25 MG TABCR PO (08:48)
[2021-10-16] MEDS: FUROSEMIDE 40 MG TABLET PO (08:49)
[2021-10-16] MEDS: INSULIN ASPART (*BKC) 100 UNITS/ML 10 UNITS SUB-Q ×2 (08:50→16:00)
--- NOTE | 2021-10-16 09:28 | PC.NURSE ---
Pt voided 600 mls clear, yellow urine. Bladder scan completed with 79 mls residual. Pt resting comfortable with call light in reach.
[2021-10-16] MEDS: POTASSIUM CHLORIDE 20 MEQ TABLET 40 MEQ PO (09:39)
[2021-10-16] MEDS: SACUBITRIL/VALSARTAN 49-51 MG TABLET 1 TABLET PO ×2 (10:13→20:51)
[2021-10-16 11:36] LABS: Glucose Point of Care 307 mg/dl (65-105)
[2021-10-16] MEDS: INSULIN ASPART (*BKC) 100 UNITS/ML SUB-Q ×4 (12:43→17:40)
[2021-10-16 15:56] LABS: Glucose Point of Care 356 mg/dl (65-105)
[2021-10-16] MEDS: DULoxetine HCL 60 MG CAPSULE.DR PO (17:39)
[2021-10-16] MEDS: RIVAROXABAN 20 MG TABLET PO (17:39)
[2021-10-16 20:58] LABS: Glucose Point of Care 174 mg/dl (65-105)
[2021-10-16] MEDS: INSULIN GLARGINE (*BKC) 100 UNITS/ML 12 UNITS SUB-Q (21:22)
[2021-10-16] MEDS: REMDESIVIR 100 MG/NS 250 ML 100 MG/250 ML BAG 250 MG IVPB (21:48)
[2021-10-17] VITALS (10 sets, daily range): BP systolic 109–151; BP diastolic 44–93; PULSE 72–95; RESP 16–20; TEMP 35.9–36.6; O2SAT 90–100
[2021-10-17] MEDS: ALBUTEROL SULFATE (*SP) INHALER 2 PUFF INHALATION ×5 (03:07→23:34)
[2021-10-17] MEDS: LEVOTHYROXINE SODIUM 25 MCG TABLET PO (05:55)
[2021-10-17 06:52] LABS: Add Urine Microscopic? YES; Appearance Urine Clear (Clear); Bilirubin Urine Negative (Negative); Blood Urine Negative (Negative); Color Urine Straw (Yellow); Glucose Urine UA 3+ mg/dL (Negative); Ketones Urine Negative (Negative); Leukocyte Esterase Ur Negative LEU/UL (Negative); Nitrate Urine Negative (Negative); Protein Urine Negative (Negative); RBC Urine 0-2 /hpf (0-2); Specific Grav Ur 1.008 (1.001-1.035); Squamous Epithelial Cell Urine Rare /hpf (Few); Urobilinogen Urine Negative mg/dL (<2.0); WBC Urine 0-3 /hpf
[2021-10-17 07:35] LABS: Basophils Absolute Auto 0.1 K/mm3 (0.0-0.1); Basophils Percent Auto 0.4 % (0.2-1.2); Hemoglobin 10.7 g/dL (12.0-15.0); Immature Granulocyte Absolute 0.06 K/mm3 (0.00-0.031); Immature Granulocyte Percent A 0.5 % (0-0.5); Lymphocytes Absolute Auto 1.49 K/mm3 (0.9-3.2); Lymphocytes Percent Auto 12.6 % (18.3-44.2); Mean Corpuscular HGB Conc 31.5 g/dl (32-36); Mean Corpuscular Hemoglobin 27.6 pg (26-34); Mean Corpuscular Volume 87.9 fl (80-100); Mean Platelet Volume 9.5 fl (7.4-10.4); Monocytes Absolute Auto 1.1 K/mm3 (0.1-0.6); Monocytes Percent Auto 9.5 % (2.6-8.5); Neutrophils Absolute Auto 9.1 K/mm3 (1.3-6.7); Platelet Count Result 316 k/mm3 (150-375); Red Blood Count 3.87 M/mm3 (4.2-5.4); Red Cell Distribution Width 13.8 % (11.5-14.5); White Blood Count 11.8 K/mm3 (4.5-10.0)
[2021-10-17 07:41] LABS: INR 2.7; Prothrombin Time 27.8 Seconds (11.1-14.7)
[2021-10-17 07:51] LABS: Alanine Aminotransferase 11 U/L (4-35); Albumin Level 2.9 g/dL (3.5-5.1); Alkaline Phosphatase 65 U/L (38-126); Anion Gap 7 mmol/L (8-16); Aspartate Amino Transferase 19 U/L (14-36); Bilirubin,Total 0.2 mg/dL (0.2-1.3); Blood Urea Nitrogen 14 mg/dL (7-17); CRP 3.6 mg/dL (<1.0); Calcium 8.8 mg/dL (8.4-10.2); Carbon Dioxide 29 mmol/L (22-30); Chloride 101 mmol/L (98-107); Estimated CRCL calculation 46 ml/min; Estimated Glomerular Filt Rate 49; Glucose 304 mg/dL (65-110); Lactate Dehydrogenase 369 U/L (313-618); Magnesium 1.9 mg/dL (1.6-2.3); Potassium 3.6 mmol/L (3.4-5.0); Sodium 137 mmol/L (137-145)
[2021-10-17 08:46] LABS: Glucose Point of Care 302 mg/dl (65-105)
[2021-10-17] MEDS: METOPROLOL SUCCINATE EXT REL 25 MG TABCR PO (09:14)
[2021-10-17] MEDS: SACUBITRIL/VALSARTAN 49-51 MG TABLET 1 TABLET PO ×2 (09:14→20:40)
[2021-10-17] MEDS: FUROSEMIDE 40 MG TABLET PO (09:14)
[2021-10-17] MEDS: INSULIN ASPART (*BKC) 100 UNITS/ML SUB-Q ×6 (09:15→17:21)
--- NOTE | 2021-10-17 09:30 | P.PNIM_ITS ---
Progress Note: A&P Assessment and Plan (1) Acute respiratory failure with hypoxia: Code(s): J96.01 - Acute respiratory failure with hypoxia Status: Acute Assessment and Plan: * Found to be 88% at home * Supplemental oxygen * Wean to maintain saturations greater than 90% * Secondary to COVID (2) Pneumonia due to COVID-19 virus: Code(s): U07.1 - COVID-19; J12.82 - Pneumonia due to coronavirus disease 2018 Status: Acute Assessment and Plan: * Recent treatment of remdesivir and dexamethasone for 5 days * Restart Remdesivir and Decadron Day 3 * Continue Xarelto 20mg PO daily * Albuterol * Inflammatory markers: D-dimer 1.60, ferritin 172, LDH 369, CRP 3.6 * Chest x-ray worsened multi focal lung disease consistent with COVID-19 * CTA shows no PE worsened lung disease consistent with pneumonia * Trend labs * Antibiotics for bacterial coverage * Supplemental oxygen, wean to maintain saturation (3) Healthcare associated bacterial pneumonia: Code(s): J15.9 - Unspecified bacterial pneumonia Status: Acute Assessment and Plan: * Patient with prior admission to hospital CT of the chest with worsening pneum onia * Patient with allergies to penicillins * Change Zithromax and ceftriaxone * blood culture NGTD * Await cultures * Sputum culture ordered and pending (4) Type 2 diabetes mellitus: Code(s): E11.9 - Type 2 diabetes mellitus without complications Status: Acute Assessment and Plan: * Glucose 304 * Trend labs * Hold metformin and trulicity * Accu cheks AC/HS * Sliding scale * Insulin 5 unit with meals, up to 8 units with meals * Lantus insulin 12 units at HS up to 15 units * Adjust therapy as indicated (5) Atrial fibrillation: Code(s): I48.91 - Unspecified atrial fibrillation Status: Acute Assessment and Plan: * Rate controlled * Continue Xarelto * See Dr. Williamson outpatient (6) CHF (congestive heart failure): Code(s): I50.9 - Heart failure, unspecified Status: Acute Assessment and Plan: * BNP 182 * Continue metoprolol, furosemide, and entresto * Daily weights * Trend IN/Out * Low sodium diet * One time dose of 20mg IV (7) Hyperglycemia: Code(s): R73.9 - Hyperglycemia, unspecified Status: Acute Assessment and Plan: * Glucose 304 * Secondary to steroids Time Spent With Patient Time with patient: Greater than 35 minutes Subjective Date/time seen: 10/17/21 0930 Interval history: Date/Time: 10/15/21 20:01 Narrative: Will this is a 71-year-old female with past medical history significant for atrial fibrillation, congestive heart failure, type 2 diabetes mellitus, hypertension, patient just recently discharged due to COVID-19 pneumonia returns to the emergency room due to worsening shortness of breath that is present at rest as well and cough productive of sputum, [facility] visi ting nurse for her to have a low oxygen saturation and after contacting her physician decided to bring her to the emergency room. Patient has had poor appetite, no nausea, no vomiting, no abdominal pain, no diarrhea, has had chills. Preliminary workup was significant for CT angiogram of the chest did not show acute pulmonary embolism but worsening lung infiltrates. Decision has been made to admit the patient for further evaluation management and treatment. Date/Time
--- NOTE | 2021-10-17 09:30 | PM.IMPN ---
Progress Note: A&P Assessment and Plan (1) Acute respiratory failure with hypoxia: Code(s): J96.01 - Acute respiratory failure with hypoxia Status: Acute Assessment and Plan: Found to be 88% at home Supplemental oxygen Wean to maintain saturations greater than 90% Secondary to COVID (2) Pneumonia due to COVID-19 virus: Code(s): U07.1 - COVID-19; J12.82 - Pneumonia due to coronavirus disease 2018 Status: Acute Assessment and Plan: Recent treatment of remdesivir and dexamethasone for 5 days Restart Remdesivir and Decadron Day 3 Continue Xarelto 20mg PO daily Albuterol Inflammatory markers: D-dimer 1.60, ferritin 172, LDH 369, CRP 3.6 Chest x-ray worsened multi focal lung disease consistent with COVID-19 CTA shows no PE worsened lung disease consistent with pneumonia Trend labs Antibiotics for bacterial coverage Supplemental oxygen, wean to maintain saturation (3) Healthcare associated bacterial pneumonia: Code(s): J15.9 - Unspecified bacterial pneumonia Status: Acute Assessment and Plan: Patient with prior admission to hospital CT of the chest with worsening pneumonia Patient with allergies to penicillins Change Zithromax and ceftriaxone blood culture NGTD Await cultures Sputum culture ordered and pending (4) Type 2 diabetes mellitus: Code(s): E11.9 - Type 2 diabetes mellitus without complications Status: Acute Assessment and Plan: Glucose 304 Trend labs Hold metformin and trulicity Accu cheks AC/HS Sliding scale Insulin 5 unit with meals, up to 8 units with meals Lantus insulin 12 units at HS up to 15 units Adjust therapy as indicated (5) Atrial fibrillation: Code(s): I48.91 - Unspecified atrial fibrillation Status: Acute Assessment and Plan: Rate controlled Continue Xarelto See Dr. Williamson outpatient (6) CHF (congestive heart failure): Code(s): I50.9 - Heart failure, unspecified Status: Acute Assessment and Plan: BNP 182 Continue metoprolol, furosemide, and entresto Daily weights Trend IN/Out Low sodium diet One time dose of 20mg IV (7) Hyperglycemia: Code(s): R73.9 - Hyperglycemia, unspecified Status: Acute Assessment and Plan: Glucose 304 Secondary to steroids Time Spent With Patient Time with patient: Greater than 35 minutes Subjective Date/time seen: 10/17/21 0930 Interval history: Date/Time: 10/15/21 20:01 Narrative: Will this is a 71-year-old female with past medical history significant for atrial fibrillation, congestive heart failure, type 2 diabetes mellitus, hypertension, patient just recently discharged due to COVID-19 pneumonia returns to the emergency room due to worsening shortness of breath that is present at rest as well and cough productive of sputum, home health visiting nurse for her to have a low oxygen saturation and after contacting her physician decided to bring her to the emergency room. Patient has had poor appetite, no nausea, no vomiting, no abdominal pain, no diarrhea, has had chills. Preliminary workup was significant for CT angiogram of the chest did not show acute pulmonary embolism but worsening lung infiltrates. Decision has been made to admit the patient for further evaluation management and treatment. Date/Time 10/16/21 0730 Patient was getting up to bedside commode when I walked in. She said she has been very short of breath and no intervention is helping. She was sent to the ED by home health nurse who found her saturations to be 88%. She denies home O2 abnormal swelling urine pain. She does have a cough which she says is dry and she did say that she has an increase in wheezes. Patient denies a smoking history or being around secondhand smoke. Patient stated that her appetite has been not adequate however she is hungry and was able to e
[2021-10-17] MEDS: FUROSEMIDE INJ 40 MG/4 ML VIAL 20 MG IV PUSH (10:44)
[2021-10-17 11:43] LABS: Glucose Point of Care 303 mg/dl (65-105)
--- NOTE | 2021-10-17 15:53 | PCRCNOTE ---
Window of time for administration has passed. See next scheduled administration.
[2021-10-17 17:09] LABS: Glucose Point of Care 280 mg/dl (65-105)
[2021-10-17] MEDS: DULoxetine HCL 60 MG CAPSULE.DR PO (17:22)
[2021-10-17] MEDS: INSULIN ASPART (*BKC) 100 UNITS/ML 8 UNITS SUB-Q (17:22)
[2021-10-17] MEDS: RIVAROXABAN 20 MG TABLET PO (17:23)
[2021-10-17] MEDS: MENTHOL 10% / METHYL SALICYLATE 15% 57 GM TUBE 1 APPLIC TOPICAL (17:23)
[2021-10-17] MEDS: INSULIN GLARGINE (*BKC) 100 UNITS/ML 15 UNITS SUB-Q (20:45)
[2021-10-17 21:08] LABS: Glucose Point of Care 347 mg/dl (65-105)
[2021-10-17] MEDS: REMDESIVIR 100 MG/NS 250 ML 100 MG/250 ML BAG 250 MG IVPB (21:53)
[2021-10-18] VITALS (9 sets, daily range): BP systolic 111–136; BP diastolic 46–63; PULSE 64–91; RESP 16–19; TEMP 36.1–37; O2SAT 91–95
[2021-10-18] MEDS: ALBUTEROL SULFATE (*SP) INHALER 2 PUFF INHALATION ×4 (04:22→16:01)
[2021-10-18] MEDS: LEVOTHYROXINE SODIUM 25 MCG TABLET PO (05:54)
[2021-10-18 06:38] LABS: Alanine Aminotransferase 12 U/L (4-35); Estimated CRCL calculation 50 ml/min; Estimated Glomerular Filt Rate 55
[2021-10-18 06:41] LABS: INR 1.9
--- NOTE | 2021-10-18 07:57 | ECG_ITS ---
Measurements Intervals [place] Rate: 64 P: 64 VT: 132 QRS: -27 QRSD: 138 T: 102 QT: 458 QTc: 476 Interpretive Statements SINUS RHYTHM INTRAVENTRICULAR CONDUCTION DELAY CONSIDER ANTEROSEPTAL INFARCT, AGE INDETERMINATE BORDERLINE ST-T WAVE ABNORMALITY- HIGH LATERAL LEADS BASELINE ARTIFACT- I, III, AVR, AVL, AVF ABNORMAL ECG Electronically Signed On 10-18-2021 8:55:33 EVENTS MANAGER by Nikolay Leong D.O.
[2021-10-18] MEDS: METOPROLOL SUCCINATE EXT REL 25 MG TABCR PO (08:26)
[2021-10-18] MEDS: SACUBITRIL/VALSARTAN 49-51 MG TABLET 1 TABLET PO ×2 (08:26→21:19)
[2021-10-18] MEDS: FUROSEMIDE 40 MG TABLET PO (08:26)
[2021-10-18] MEDS: INSULIN ASPART (*BKC) 100 UNITS/ML 8 UNITS SUB-Q ×3 (08:27→17:10)
[2021-10-18] MEDS: INSULIN ASPART (*BKC) 100 UNITS/ML SUB-Q ×4 (08:33→21:46)
[2021-10-18 09:11] LABS: Glucose Point of Care 310 mg/dl (65-105)
[2021-10-18 12:09] LABS: Glucose Point of Care 396 mg/dl (65-105)
[2021-10-18 13:21] LABS: Anion Gap 10 mmol/L (8-16); Blood Urea Nitrogen 21 mg/dL (7-17); Carbon Dioxide 28 mmol/L (22-30); Chloride 98 mmol/L (98-107); Estimated CRCL calculation 55 ml/min; Estimated Glomerular Filt Rate > 60; Glucose 426 mg/dL (65-110); Potassium 3.9 mmol/L (3.4-5.0); Sodium 136 mmol/L (137-145)
--- NOTE | 2021-10-18 16:32 | P.PNIM_ITS ---
Progress Note: A&P Assessment and Plan (1) Acute respiratory failure with hypoxia: Code(s): J96.01 - Acute respiratory failure with hypoxia Status: Acute Assessment and Plan: * Found to be 88% at home * Supplemental oxygen * Wean to maintain saturations greater than 90% * Secondary to COVID (2) Pneumonia due to COVID-19 virus: Code(s): U07.1 - COVID-19; J12.82 - Pneumonia due to coronavirus disease 2018 Status: Acute Assessment and Plan: * Recent treatment of remdesivir and dexamethasone for 5 days * Restart Remdesivir and Decadron Day 3 * Continue Xarelto 20mg PO daily * Albuterol * Inflammatory markers: D-dimer 1.60, ferritin 172, LDH 369, CRP 3.6 * Chest x-ray worsened multi focal lung disease consistent with COVID-19 * CTA shows no PE worsened lung disease consistent with pneumonia * Trend labs * Antibiotics for bacterial coverage * Supplemental oxygen, wean to maintain saturation (3) Healthcare associated bacterial pneumonia: Code(s): J15.9 - Unspecified bacterial pneumonia Status: Acute Assessment and Plan: * Patient with prior admission to hospital CT of the chest with worsening pneum onia * Patient with allergies to penicillins * Change Zithromax and ceftriaxone * blood culture NGTD * Blood cultures growing Coag negative Staphylococcus; likely contaminant. * Sputum culture neg. (4) Type 2 diabetes mellitus: Code(s): E11.9 - Type 2 diabetes mellitus without complications Status: Acute Assessment and Plan: * Glucose 240-426 * Give lantus 30 once and lispro 5 units once * Start bID lantus tomorrow. * Hold metformin and trulicity * Accu cheks AC/HS * Sliding scale * Insulin 5 unit with meals, up to 8 units with meals * Lantus insulin 12 units at HS up to 15 units * Adjust therapy as indicated (5) Atrial fibrillation: Code(s): I48.91 - Unspecified atrial fibrillation Status: Acute Assessment and Plan: * Rate controlled * Continue Xarelto * See Dr. Williamson outpatient (6) CHF (congestive heart failure): Code(s): I50.9 - Heart failure, unspecified Status: Acute Assessment and Plan: * BNP 182 * Continue metoprolol, furosemide, and entresto * Daily weights * Trend IN/Out * Low sodium diet * One time dose of 20mg IV (7) Hyperglycemia: Code(s): R73.9 - Hyperglycemia, unspecified Status: Acute Assessment and Plan: * Glucose 304 * Secondary to steroids Subjective Date/time seen: 10/18/21 13:32 S: Patient is examined at the bedside. Breathing is improving after she was started on 2 liters O2 via nasal canula. Interval history: Date/Time: 10/15/21 20:01 Narrative: Will this is a 71-year-old female with past medical history s ignificant for atrial fibrillation, congestive heart failure, type 2 diabetes mellitus, hypertension, patient just recently discharged due to COVID-19 pneumonia returns to the emergency room due to worsening shortness of breath that is present at rest as well and cough productive of sputum, home health visiting nurse for her to have a low oxygen saturation and after contacting her physician decided to bring her to the emergency room. Patient has had poor appetite, no nausea, no vomiting, no abdominal pain, no diarrhea, has had chills. Preliminary workup was significant for CT angiogram of the chest did not show acute pulmonary embolism
--- NOTE | 2021-10-18 16:32 | PM.IMPN ---
Progress Note: A&P Assessment and Plan (1) Acute respiratory failure with hypoxia: Code(s): J96.01 - Acute respiratory failure with hypoxia Status: Acute Assessment and Plan: Found to be 88% at home Supplemental oxygen Wean to maintain saturations greater than 90% Secondary to COVID (2) Pneumonia due to COVID-19 virus: Code(s): U07.1 - COVID-19; J12.82 - Pneumonia due to coronavirus disease 2018 Status: Acute Assessment and Plan: Recent treatment of remdesivir and dexamethasone for 5 days Restart Remdesivir and Decadron Day 3 Continue Xarelto 20mg PO daily Albuterol Inflammatory markers: D-dimer 1.60, ferritin 172, LDH 369, CRP 3.6 Chest x-ray worsened multi focal lung disease consistent with COVID-19 CTA shows no PE worsened lung disease consistent with pneumonia Trend labs Antibiotics for bacterial coverage Supplemental oxygen, wean to maintain saturation (3) Healthcare associated bacterial pneumonia: Code(s): J15.9 - Unspecified bacterial pneumonia Status: Acute Assessment and Plan: Patient with prior admission to hospital CT of the chest with worsening pneumonia Patient with allergies to penicillins Change Zithromax and ceftriaxone blood culture NGTD Blood cultures growing Coag negative Staphylococcus; likely contaminant. Sputum culture neg. (4) Type 2 diabetes mellitus: Code(s): E11.9 - Type 2 diabetes mellitus without complications Status: Acute Assessment and Plan: Glucose 240-426 Give lantus 30 once and lispro 5 units once Start bID lantus tomorrow. Hold metformin and trulicity Accu cheks AC/HS Sliding scale Insulin 5 unit with meals, up to 8 units with meals Lantus insulin 12 units at HS up to 15 units Adjust therapy as indicated (5) Atrial fibrillation: Code(s): I48.91 - Unspecified atrial fibrillation Status: Acute Assessment and Plan: Rate controlled Continue Xarelto See Dr. Williamson outpatient (6) CHF (congestive heart failure): Code(s): I50.9 - Heart failure, unspecified Status: Acute Assessment and Plan: BNP 182 Continue metoprolol, furosemide, and entresto Daily weights Trend IN/Out Low sodium diet One time dose of 20mg IV (7) Hyperglycemia: Code(s): R73.9 - Hyperglycemia, unspecified Status: Acute Assessment and Plan: Glucose 304 Secondary to steroids Subjective Date/time seen: 10/18/21 13:32 S: Patient is examined at the bedside. Breathing is improving after she was started on 2 liters O2 via nasal canula. Interval history: Date/Time: 10/15/21 20:01 Narrative: Will this is a 71-year-old female with past medical history significant for atrial fibrillation, congestive heart failure, type 2 diabetes mellitus, hypertension, patient just recently discharged due to COVID-19 pneumonia returns to the emergency room due to worsening shortness of breath that is present at rest as well and cough productive of sputum, home health visiting nurse for her to have a low oxygen saturation and after contacting her physician decided to bring her to the emergency room. Patient has had poor appetite, no nausea, no vomiting, no abdominal pain, no diarrhea, has had chills. Preliminary workup was significant for CT angiogram of the chest did not show acute pulmonary embolism but worsening lung infiltrates. Decision has been made to admit the patient for further evaluation management and treatment. Date/Time 10/16/21 0730 Patient was getting up to bedside commode when I walked in. She said she has been very short of breath and no intervention is helping. She was sent to the ED by home health nurse who found her saturations to be 88%. She denies home O2 abnormal swelling urine pain. She does have a cough which she says is dry and she did say that she has an increase in wheezes. Patient
[2021-10-18] MEDS: RIVAROXABAN 20 MG TABLET PO (17:10)
[2021-10-18] MEDS: DULoxetine HCL 60 MG CAPSULE.DR PO (17:10)
[2021-10-18] MEDS: INSULIN GLARGINE (*BKC) 100 UNITS/ML 30 UNITS SUB-Q (17:11)
[2021-10-18 17:29] LABS: Glucose Point of Care 357 mg/dl (65-105)
[2021-10-18 22:10] LABS: Glucose Point of Care 232 mg/dl (65-105)
[2021-10-18] MEDS: REMDESIVIR 100 MG/NS 250 ML 100 MG/250 ML BAG 250 MG IVPB (22:57)
[2021-10-19] VITALS (12 sets, daily range): BP systolic 100–140; BP diastolic 55–90; PULSE 59–73; RESP 16–22; TEMP 35.8–36.3; O2SAT 92–95
[2021-10-19] MEDS: LEVOTHYROXINE SODIUM 25 MCG TABLET PO (06:42)
[2021-10-19 07:00] LABS: Alanine Aminotransferase 12 U/L (4-35); Estimated CRCL calculation 50 ml/min; Estimated Glomerular Filt Rate 55
[2021-10-19 07:03] LABS: INR 1.6; Prothrombin Time 18.9 Seconds (11.1-14.7)
[2021-10-19 07:56] LABS: Glucose Point of Care 189 mg/dl (65-105)
[2021-10-19] MEDS: INSULIN GLARGINE (*BKC) 100 UNITS/ML 29 UNITS SUB-Q (07:59)
[2021-10-19] MEDS: INSULIN ASPART (*BKC) 100 UNITS/ML 8 UNITS SUB-Q ×3 (08:00→16:45)
[2021-10-19] MEDS: FUROSEMIDE 40 MG TABLET PO (08:03)
[2021-10-19] MEDS: SACUBITRIL/VALSARTAN 49-51 MG TABLET 1 TABLET PO ×2 (08:03→21:28)
[2021-10-19] MEDS: METOPROLOL SUCCINATE EXT REL 25 MG TABCR PO (08:03)
[2021-10-19] MEDS: ALBUTEROL SULFATE (*SP) INHALER 2 PUFF INHALATION ×6 (08:45→23:58)
[2021-10-19 11:47] LABS: Glucose Point of Care 414 mg/dl (65-105)
[2021-10-19] MEDS: INSULIN ASPART (*BKC) 100 UNITS/ML SUB-Q ×2 (11:51→16:44)
--- NOTE | 2021-10-19 14:25 | P.PNIM_ITS ---
Progress Note: A&P Assessment and Plan (1) Acute respiratory failure with hypoxia: Code(s): J96.01 - Acute respiratory failure with hypoxia Status: Acute Assessment and Plan: * Acute hypoxic respiratory failure secondary COVID-19 pneumonia. Patient was saturating 88% at home. Currently patient improving she has saturation of 92 on room air. (2) Pneumonia due to COVID-19 virus: Code(s): U07.1 - COVID-19; J12.82 - Pneumonia due to coronavirus disease 2018 Status: Acute Assessment and Plan: * Recent treatment of remdesivir and dexamethasone for 5 days * Continue Remdesivir and Decadron Day 4 * Continue Xarelto 20mg PO daily * Albuterol * Inflammatory markers: D-dimer 1.60, ferritin 172, LDH 369, CRP 3.6 * Chest x-ray worsened multi focal lung disease consistent with COVID-19 * CTA shows no PE worsened lung disease consistent with pneumonia * Trend labs * Antibiotics for bacterial coverage * Supplemental oxygen, wean to maintain saturation (3) Healthcare associated bacterial pneumonia: Code(s): J15.9 - Unspecified bacterial pneumonia Status: Acute Assessment and Plan: * Patient with prior admission to hospital CT of the chest with worsening pneumonia * Patient with allergies to penicillins * Continue Zithromax and ceftriaxone * blood culture NGTD * Blood cultures growing Coag negative Staphylococcus; likely contaminant. * Sputum culture neg. (4) Type 2 diabetes mellitus: Code(s): E11.9 - Type 2 diabetes mellitus without complications Status: Acute Assessment and Plan: * Glucose remained elevated. Accu-Chek in the 189-414 range today. * Give lantus 29 once and lispro 16 units once * Continue lantus b.i.d.. * Hold metformin and trulicity * Accu cheks AC/HS * Sliding scale * Insulin 5 unit with meals, up to 8 units with meals * Lantus insulin 30 units b.i.d.. * Adjust therapy as indicated (5) Atrial fibrillation: Code(s): I48.91 - Unspecified atrial fibrillation Status: Acute Assessment and Plan: * Rate controlled * Continue Xarelto * See Dr. Williamson outpatient (6) CHF (congestive heart failure): Code(s): I50.9 - Heart failure, unspecified Status: Acute Assessment and Plan: * BNP 182 * Continue metoprolol, furosemide, and entresto * Daily weights * Trend IN/Out * Low sodium diet * One time dose of 20mg IV (7) Hyperglycemia: Code(s): R73.9 - Hyperglycemia, unspecified Status: Acute Assessment and Plan: * Glucose 414 * Uncontrolled diabetes secondary to steroids. * Continue close monitor and address insulin as needed. Subjective Date/time seen: 10/19/21 14:25 S: Patient was seen at the bedside. She reports cough. There is no chest pain shortness of breath nausea vomiting diarrhea constipation. Interval history: Date/Time: 10/15/21 20:01 Narrative: Will this is a 71-year-old female with past medical history signif icant for atrial fibrillation, congestive heart failure, type 2 diabetes mellitus, hypertension, patient just recently discharged due to COVID-19 pneumonia returns to the emergency room due to worsening shortness of breath that is present at rest as well and cough productive of sputum, home health visiting nurse for her to have a low oxygen saturation and after contacting her physician decided to bring her to the emergency room. Patient has had poor appet
--- NOTE | 2021-10-19 14:25 | PM.IMPN ---
Progress Note: A&P Assessment and Plan (1) Acute respiratory failure with hypoxia: Code(s): J96.01 - Acute respiratory failure with hypoxia Status: Acute Assessment and Plan: Acute hypoxic respiratory failure secondary COVID-19 pneumonia. Patient was saturating 88% at home. Currently patient improving she has saturation of 92 on room air. (2) Pneumonia due to COVID-19 virus: Code(s): U07.1 - COVID-19; J12.82 - Pneumonia due to coronavirus disease 2018 Status: Acute Assessment and Plan: Recent treatment of remdesivir and dexamethasone for 5 days Continue Remdesivir and Decadron Day 4 Continue Xarelto 20mg PO daily Albuterol Inflammatory markers: D-dimer 1.60, ferritin 172, LDH 369, CRP 3.6 Chest x-ray worsened multi focal lung disease consistent with COVID-19 CTA shows no PE worsened lung disease consistent with pneumonia Trend labs Antibiotics for bacterial coverage Supplemental oxygen, wean to maintain saturation (3) Healthcare associated bacterial pneumonia: Code(s): J15.9 - Unspecified bacterial pneumonia Status: Acute Assessment and Plan: Patient with prior admission to hospital CT of the chest with worsening pneumonia Patient with allergies to penicillins Continue Zithromax and ceftriaxone blood culture NGTD Blood cultures growing Coag negative Staphylococcus; likely contaminant. Sputum culture neg. (4) Type 2 diabetes mellitus: Code(s): E11.9 - Type 2 diabetes mellitus without complications Status: Acute Assessment and Plan: Glucose remained elevated. Accu-Chek in the 189-414 range today. Give lantus 29 once and lispro 16 units once Continue lantus b.i.d.. Hold metformin and trulicity Accu cheks AC/HS Sliding scale Insulin 5 unit with meals, up to 8 units with meals Lantus insulin 30 units b.i.d.. Adjust therapy as indicated (5) Atrial fibrillation: Code(s): I48.91 - Unspecified atrial fibrillation Status: Acute Assessment and Plan: Rate controlled Continue Xarelto See Dr. Williamson outpatient (6) CHF (congestive heart failure): Code(s): I50.9 - Heart failure, unspecified Status: Acute Assessment and Plan: BNP 182 Continue metoprolol, furosemide, and entresto Daily weights Trend IN/Out Low sodium diet One time dose of 20mg IV (7) Hyperglycemia: Code(s): R73.9 - Hyperglycemia, unspecified Status: Acute Assessment and Plan: Glucose 414 Uncontrolled diabetes secondary to steroids. Continue close monitor and address insulin as needed. Subjective Date/time seen: 10/19/21 14:25 S: Patient was seen at the bedside. She reports cough. There is no chest pain shortness of breath nausea vomiting diarrhea constipation. Interval history: Date/Time: 10/15/21 20:01 Narrative: Will this is a 71-year-old female with past medical history significant for atrial fibrillation, congestive heart failure, type 2 diabetes mellitus, hypertension, patient just recently discharged due to COVID-19 pneumonia returns to the emergency room due to worsening shortness of breath that is present at rest as well and cough productive of sputum, home health visiting nurse for her to have a low oxygen saturation and after contacting her physician decided to bring her to the emergency room. Patient has had poor appetite, no nausea, no vomiting, no abdominal pain, no diarrhea, has had chills. Preliminary workup was significant for CT angiogram of the chest did not show acute pulmonary embolism but worsening lung infiltrates. Decision has been made to admit the patient for further evaluation management and treatment. Date/Time 10/16/21 0730 Patient was getting up to bedside commode when I walked in. She said she has been very short of breath and no intervention is helping. She was sent to the ED by home health nurse who
[2021-10-19 16:38] LABS: Glucose Point of Care 297 mg/dl (65-105)
[2021-10-19] MEDS: RIVAROXABAN 20 MG TABLET PO (16:45)
[2021-10-19] MEDS: DULoxetine HCL 60 MG CAPSULE.DR PO (16:45)
[2021-10-19] MEDS: INSULIN GLARGINE (*BKC) 100 UNITS/ML 15 UNITS SUB-Q (21:39)
[2021-10-19 21:43] LABS: Glucose Point of Care 378 mg/dl (65-105)
[2021-10-20] VITALS (9 sets, daily range): BP systolic 110–145; BP diastolic 42–100; PULSE 51–100; RESP 16–20; TEMP 35.6–36.7; O2SAT 90–98
[2021-10-20] MEDS: REMDESIVIR 100 MG/NS 250 ML 100 MG/250 ML BAG 250 MG IVPB ×2 (00:12→22:13)
[2021-10-20] MEDS: ALBUTEROL SULFATE (*SP) INHALER 2 PUFF INHALATION ×6 (03:55→23:18)
[2021-10-20] MEDS: LEVOTHYROXINE SODIUM 25 MCG TABLET PO ×2 (06:16→06:17)
[2021-10-20 08:19] LABS: Glucose Point of Care 315 mg/dl (65-105)
[2021-10-20 08:23] LABS: INR 1.8; Prothrombin Time 20.9 Seconds (11.1-14.7)
--- NOTE | 2021-10-20 09:10 | P.PNIM_ITS ---
Progress Note: A&P Assessment and Plan (1) Acute respiratory failure with hypoxia: Code(s): J96.01 - Acute respiratory failure with hypoxia Status: Acute Assessment and Plan: * Acute hypoxic respiratory failure secondary COVID-19 pneumonia. Patient was saturating 88% at home. Currently patient improving she has saturation of 92 on room air. (2) Pneumonia due to COVID-19 virus: Code(s): U07.1 - COVID-19; J12.82 - Pneumonia due to coronavirus disease 2018 Status: Acute Assessment and Plan: * Recent treatment of remdesivir and dexamethasone for 5 days * Continue Remdesivir and Decadron Day 4 * Continue Xarelto 20mg PO daily * Albuterol * Inflammatory markers: D-dimer 1.60, ferritin 172, LDH 369, CRP 3.6 * Chest x-ray worsened multi focal lung disease consistent with COVID-19 * CTA shows no PE worsened lung disease consistent with pneumonia * Trend labs * Antibiotics for bacterial coverage * Supplemental oxygen, wean to maintain saturation (3) Healthcare associated bacterial pneumonia: Code(s): J15.9 - Unspecified bacterial pneumonia Status: Acute Assessment and Plan: * Patient with prior admission to hospital CT of the chest with worsening pneumonia * Patient with allergies to penicillins * Continue Zithromax and ceftriaxone * blood culture NGTD * Blood cultures growing Coag negative Staphylococcus; likely contaminant. * Sputum culture neg. (4) Type 2 diabetes mellitus: Code(s): E11.9 - Type 2 diabetes mellitus without complications Status: Acute Assessment and Plan: * Glucose remained elevated. Accu-Chek in the 255-315 range today. * Give lispro 16 units once * Continue lantus b.i.d.. * Hold metformin and trulicity * Accu cheks AC/HS * Sliding scale * Insulin 5 unit with meals, up to 8 units with meals * Lantus insulin 30 units b.i.d.. * Adjust therapy as indicated (5) Atrial fibrillation: Code(s): I48.91 - Unspecified atrial fibrillation Status: Acute Assessment and Plan: * Rate controlled * Continue Xarelto * See Dr. Williamson outpatient (6) CHF (congestive heart failure): Code(s): I50.9 - Heart failure, unspecified Status: Acute Assessment and Plan: * BNP 182 * Continue metoprolol, furosemide, and entresto * Daily weights * Trend IN/Out * Low sodium diet * One time dose of 20mg IV (7) Hyperglycemia: Code(s): R73.9 - Hyperglycemia, unspecified Status: Acute Assessment and Plan: * Elevated blood glucose. * Uncontrolled diabetes secondary to steroids. * Continue close monitor and address insulin as needed. Subjective Date/time seen: 10/20/21 09:10 S: Patient was seen examined at the bedside. She denies any complaints. She is feeling a lot better. Review of Systems Review of Systems: All systems reviewed & are unremarkable except as noted in HPI and below Constitutional: Constitutional: Reports chills, Denies fatigue, Reports fever(s), Reports malaise, Reports poor appetite and Reports weakness Eyes: Eyes: Denies change in vision ENT: Denies dysphagia, Denies nasal congestion, Denies nasal discharge, Denies nasal obstruction and Denies odynophagia Cardiovascular: Cardiovascular: Denies pedal edema, Denies irregular heart rhythm, Denies claudication, Denies leg edema, Denies radiating jaw, neck
--- NOTE | 2021-10-20 09:10 | PM.IMPN ---
Progress Note: A&P Assessment and Plan (1) Acute respiratory failure with hypoxia: Code(s): J96.01 - Acute respiratory failure with hypoxia Status: Acute Assessment and Plan: Acute hypoxic respiratory failure secondary COVID-19 pneumonia. Patient was saturating 88% at home. Currently patient improving she has saturation of 92 on room air. (2) Pneumonia due to COVID-19 virus: Code(s): U07.1 - COVID-19; J12.82 - Pneumonia due to coronavirus disease 2018 Status: Acute Assessment and Plan: Recent treatment of remdesivir and dexamethasone for 5 days Continue Remdesivir and Decadron Day 4 Continue Xarelto 20mg PO daily Albuterol Inflammatory markers: D-dimer 1.60, ferritin 172, LDH 369, CRP 3.6 Chest x-ray worsened multi focal lung disease consistent with COVID-19 CTA shows no PE worsened lung disease consistent with pneumonia Trend labs Antibiotics for bacterial coverage Supplemental oxygen, wean to maintain saturation (3) Healthcare associated bacterial pneumonia: Code(s): J15.9 - Unspecified bacterial pneumonia Status: Acute Assessment and Plan: Patient with prior admission to hospital CT of the chest with worsening pneumonia Patient with allergies to penicillins Continue Zithromax and ceftriaxone blood culture NGTD Blood cultures growing Coag negative Staphylococcus; likely contaminant. Sputum culture neg. (4) Type 2 diabetes mellitus: Code(s): E11.9 - Type 2 diabetes mellitus without complications Status: Acute Assessment and Plan: Glucose remained elevated. Accu-Chek in the 255-315 range today. Give lispro 16 units once Continue lantus b.i.d.. Hold metformin and trulicity Accu cheks AC/HS Sliding scale Insulin 5 unit with meals, up to 8 units with meals Lantus insulin 30 units b.i.d.. Adjust therapy as indicated (5) Atrial fibrillation: Code(s): I48.91 - Unspecified atrial fibrillation Status: Acute Assessment and Plan: Rate controlled Continue Xarelto See Dr. Williamson outpatient (6) CHF (congestive heart failure): Code(s): I50.9 - Heart failure, unspecified Status: Acute Assessment and Plan: BNP 182 Continue metoprolol, furosemide, and entresto Daily weights Trend IN/Out Low sodium diet One time dose of 20mg IV (7) Hyperglycemia: Code(s): R73.9 - Hyperglycemia, unspecified Status: Acute Assessment and Plan: Elevated blood glucose. Uncontrolled diabetes secondary to steroids. Continue close monitor and address insulin as needed. Subjective Date/time seen: 10/20/21 09:10 S: Patient was seen examined at the bedside. She denies any complaints. She is feeling a lot better. Review of Systems Review of Systems: All systems reviewed & are unremarkable except as noted in HPI and below Constitutional: Constitutional: Reports chills, Denies fatigue, Reports fever(s), Reports malaise, Reports poor appetite and Reports weakness Eyes: Eyes: Denies change in vision ENT: Denies dysphagia, Denies nasal congestion, Denies nasal discharge, Denies nasal obstruction and Denies odynophagia Cardiovascular: Cardiovascular: Denies pedal edema, Denies irregular heart rhythm, Denies claudication, Denies leg edema, Denies radiating jaw, neck or arm pain, Denies palpitations, Reports dyspnea, Denies dyspnea on exertion and Denies orthopnea Respiratory: Respiratory: Reports change in phlegm color, Reports cough, Reports dyspnea and Denies dyspnea on exertion Gastrointestinal: Gastrointestinal: Denies abdominal pain, Denies dysphagia, Denies dyspepsia, Denies heartburn, Denies diarrhea, Denies nausea, Denies odynophagia and Denies vomiting Genitourinary: Genitourinary: Denies dysuria Musculoskeletal: Musculoskeletal: Denies muscle cramps and Denies tingling Integumentary/Breasts: Skin/Breast: [place]
[2021-10-20] MEDS: INSULIN ASPART (*BKC) 100 UNITS/ML 8 UNITS SUB-Q ×3 (09:14→17:44)
[2021-10-20] MEDS: INSULIN ASPART (*BKC) 100 UNITS/ML SUB-Q ×3 (09:14→17:44)
[2021-10-20] MEDS: METOPROLOL SUCCINATE EXT REL 25 MG TABCR PO (09:16)
[2021-10-20] MEDS: FUROSEMIDE 40 MG TABLET PO (09:16)
[2021-10-20] MEDS: SACUBITRIL/VALSARTAN 49-51 MG TABLET 1 TABLET PO ×2 (09:17→21:00)
[2021-10-20] MEDS: INSULIN GLARGINE (*BKC) 100 UNITS/ML 15 UNITS SUB-Q ×3 (09:18→21:30)
[2021-10-20 10:16] LABS: Alanine Aminotransferase 11 U/L (4-35); Estimated CRCL calculation 50 ml/min; Estimated Glomerular Filt Rate 55
[2021-10-20 12:06] LABS: Glucose Point of Care 273 mg/dl (65-105)
[2021-10-20 16:10] LABS: Glucose Point of Care 305 mg/dl (65-105)
[2021-10-20] MEDS: RIVAROXABAN 20 MG TABLET PO (17:46)
[2021-10-20] MEDS: DULoxetine HCL 60 MG CAPSULE.DR PO (17:46)
[2021-10-20 22:16] LABS: Glucose Point of Care 255 mg/dl (65-105)
[2021-10-21] VITALS (9 sets, daily range): BP systolic 118–141; BP diastolic 55–63; PULSE 61–89; RESP 18; TEMP 36.4–36.6; O2SAT 92–100
[2021-10-21] MEDS: ALBUTEROL SULFATE (*SP) INHALER 2 PUFF INHALATION ×3 (03:12→11:21)
[2021-10-21 08:31] LABS: Glucose Point of Care 277 mg/dl (65-105)
[2021-10-21 08:34] LABS: Anion Gap 6 mmol/L (8-16); Blood Urea Nitrogen 23 mg/dL (7-17); Calcium 8.5 mg/dL (8.4-10.2); Carbon Dioxide 28 mmol/L (22-30); Chloride 102 mmol/L (98-107); Estimated CRCL calculation 55 ml/min; Estimated Glomerular Filt Rate > 60; Glucose 286 mg/dL (65-110); Potassium 4.2 mmol/L (3.4-5.0); Sodium 136 mmol/L (137-145)
[2021-10-21] MEDS: INSULIN ASPART (*BKC) 100 UNITS/ML SUB-Q ×2 (09:08→12:02)
[2021-10-21] MEDS: INSULIN ASPART (*BKC) 100 UNITS/ML 8 UNITS SUB-Q ×2 (09:09→12:03)
[2021-10-21] MEDS: FUROSEMIDE 40 MG TABLET PO (09:11)
[2021-10-21] MEDS: METOPROLOL SUCCINATE EXT REL 25 MG TABCR PO (09:11)
[2021-10-21] MEDS: SACUBITRIL/VALSARTAN 49-51 MG TABLET 1 TABLET PO (09:11)
--- NOTE | 2021-10-21 09:30 | P.DS_ITS ---
DS: Admitting Diagnosis Discharge Date 10/21/21929 Admitting Diagnosis COVID-19 pneumonia/HCAP DS: Discharge Diagnosis Discharge Diagnosis (1) Acute respiratory failure with hypoxia: Code(s): J96.01 - Acute respiratory failure with hypoxia Status: Acute Assessment and Plan: * Acute hypoxic respiratory failure secondary COVID-19 pneumonia. Patient was saturating 88% at home. Currently patient improving she has saturation of 92 on room air. (2) Pneumonia due to COVID-19 virus: Code(s): U07.1 - COVID-19; J12.82 - Pneumonia due to coronavirus disease 2019 Status: Acute Assessment and Plan: * Recent treatment of remdesivir and dexamethasone for 5 days * Continue Remdesivir and Decadron Day 4 * Continue Xarelto 20mg PO daily * Albuterol * Inflammatory markers: D-dimer 1.60, ferritin 172, LDH 369, CRP 3.6 * Chest x-ray worsened multi focal lung disease consistent with COVID-19 * CTA shows no PE worsened lung disease consistent with pneumonia * Trend labs * Antibiotics for bacterial coverage * Supplemental oxygen, wean to maintain saturation (3) Healthcare associated bacterial pneumonia: Code(s): J15.9 - Unspecified bacterial pneumonia Status: Acute Assessment and Plan: * Patient with prior admission to hospital CT of the chest with worsening pneumonia * Patient with allergies to penicillins * Continue Zithromax and ceftriaxone * blood culture NGTD * Blood cultures growing Coag negative Staphylococcus; likely contaminant. * Sputum culture neg. (4) Type 2 diabetes mellitus: Code(s): E11.9 - Type 2 diabetes mellitus without complications Status: Acute Assessment and Plan: * Glucose remained elevated. Accu-Chek in the 189-414 range today. * Give lantus 29 once and lispro 16 units once * Continue lantus b.i.d.. * Hold metformin and trulicity * Accu cheks AC/HS * Sliding scale * Insulin 5 unit with meals, up to 8 units with meals * Lantus insulin 30 units b.i.d.. * Adjust therapy as indicated (5) Atrial fibrillation: Code(s): I48.91 - Unspecified atrial fibrillation Status: Acute Assessment and Plan: * Rate controlled * Continue Xarelto * See Dr. Williamson outpatient (6) CHF (congestive heart failure): Code(s): I50.9 - Heart failure, unspecified Status: Acute Assessment and Plan: * BNP 182 * Continue metoprolol, furosemide, and entresto * Daily weights * Trend IN/Out * Low sodium diet * One time dose of 20mg IV (7) Hyperglycemia: Code(s): R73.9 - Hyperglycemia, unspecified Status: Acute Assessment and Plan: * Glucose 286 * Uncontrolled diabetes secondary to steroids. * Continue close monitor and address insulin as needed. DS: Summary Hospital Course Hospital Course: Patient is a 71-year-old female with a past medical history of diabetes, hypothyroidism, congestive heart failure who presented to the ED with complaints of worsening shortness of breath. According the patient the home health nurse came to see the patient and noted that her oxygenation would not get over 85%. In the ED she was placed on supplemental oxygen which has been titrated to room air. Patient was also started on remdesivir and dexamethasone and completed a 6 day course. Patient was also placed on antibiotics azithromycin and vancomycin for pneumonia coverage. Patient has been able
--- NOTE | 2021-10-21 09:30 | PM.DS ---
DS: Admitting Diagnosis Discharge Date 10/21/21929 Admitting Diagnosis COVID-19 pneumonia/HCAP DS: Discharge Diagnosis Discharge Diagnosis (1) Acute respiratory failure with hypoxia: Code(s): J96.01 - Acute respiratory failure with hypoxia Status: Acute Assessment and Plan: Acute hypoxic respiratory failure secondary COVID-19 pneumonia. Patient was saturating 88% at home. Currently patient improving she has saturation of 92 on room air. (2) Pneumonia due to COVID-19 virus: Code(s): U07.1 - COVID-19; J12.82 - Pneumonia due to coronavirus disease 2019 Status: Acute Assessment and Plan: Recent treatment of remdesivir and dexamethasone for 5 days Continue Remdesivir and Decadron Day 4 Continue Xarelto 20mg PO daily Albuterol Inflammatory markers: D-dimer 1.60, ferritin 172, LDH 369, CRP 3.6 Chest x-ray worsened multi focal lung disease consistent with COVID-19 CTA shows no PE worsened lung disease consistent with pneumonia Trend labs Antibiotics for bacterial coverage Supplemental oxygen, wean to maintain saturation (3) Healthcare associated bacterial pneumonia: Code(s): J15.9 - Unspecified bacterial pneumonia Status: Acute Assessment and Plan: Patient with prior admission to hospital CT of the chest with worsening pneumonia Patient with allergies to penicillins Continue Zithromax and ceftriaxone blood culture NGTD Blood cultures growing Coag negative Staphylococcus; likely contaminant. Sputum culture neg. (4) Type 2 diabetes mellitus: Code(s): E11.9 - Type 2 diabetes mellitus without complications Status: Acute Assessment and Plan: Glucose remained elevated. Accu-Chek in the 189-414 range today. Give lantus 29 once and lispro 16 units once Continue lantus b.i.d.. Hold metformin and trulicity Accu cheks AC/HS Sliding scale Insulin 5 unit with meals, up to 8 units with meals Lantus insulin 30 units b.i.d.. Adjust therapy as indicated (5) Atrial fibrillation: Code(s): I48.91 - Unspecified atrial fibrillation Status: Acute Assessment and Plan: Rate controlled Continue Xarelto See Dr. Williamson outpatient (6) CHF (congestive heart failure): Code(s): I50.9 - Heart failure, unspecified Status: Acute Assessment and Plan: BNP 182 Continue metoprolol, furosemide, and entresto Daily weights Trend IN/Out Low sodium diet One time dose of 20mg IV (7) Hyperglycemia: Code(s): R73.9 - Hyperglycemia, unspecified Status: Acute Assessment and Plan: Glucose 286 Uncontrolled diabetes secondary to steroids. Continue close monitor and address insulin as needed. DS: Summary Hospital Course Hospital Course: Patient is a 71-year-old female with a past medical history of diabetes, hypothyroidism, congestive heart failure who presented to the ED with complaints of worsening shortness of breath. According the patient the home health nurse came to see the patient and noted that her oxygenation would not get over 85%. In the ED she was placed on supplemental oxygen which has been titrated to room air. Patient was also started on remdesivir and dexamethasone and completed a 6 day course. Patient was also placed on antibiotics azithromycin and vancomycin for pneumonia coverage. Patient has been able to get up and move around the room on her own and feels better today. Patient denies any diarrhea, constipation, chest pain, shortness of breath, headache, and lightheadedness, dizziness. She does still have a cough with phlegm coming up. Patient was also noted to be hyperglycemic with glucose as high as 400s. Insulin has been adjusted to maintain and glucose has been within a normal range. Inflammatory markers have also been on trend in her noted to be within normal range. Chest x-ray upon arrival showed worsened multifo
[2021-10-21 10:40] LABS: INR 1.7; Prothrombin Time 19.2 Seconds (11.1-14.7)
[2021-10-21 11:13] LABS: Alanine Aminotransferase 13 U/L (4-35); Estimated CRCL calculation 55 ml/min; Estimated Glomerular Filt Rate > 60
[2021-10-21 12:22] LABS: Glucose Point of Care 345 mg/dl (65-105)
--- NOTE | 2021-10-21 14:50 | PCRCNOTE ---
HOME O2 EVALUATION COMPLETED. PATIENT DOES NOT REQUIRE HOME O2.
== END 2021-10-21 16:28 | disposition home health service (06) | DRG 177 ==
LOC: ANHED 20:12 → ANH3MEDSUR 20:20
PROVIDERS: Internal Medicine; Nurse Practitioner; Admitting Provider Family Medicine; Emergency Provider Emergency Medicine; PCP Physician Assistant; Visit Provider Internal Medicine
DX: U07.1 COVID-19 (principal); J12.82 Pneumonia due to coronavirus disease 2019; J96.01 Acute respiratory failure with hypoxia; J15.9 Unspecified bacterial pneumonia; I48.20 Chronic atrial fibrillation, unspecified; I11.0 Hypertensive heart disease with heart failure; I50.9 Heart failure, unspecified; E11.65 Type 2 diabetes mellitus with hyperglycemia; T38.0X5A Adverse effect of glucocorticoids and synthetic analogues, initial encounter; E66.9 Obesity, unspecified; Z68.37 Body mass index [BMI] 37.0-37.9, adult; Z79.01 Long term (current) use of anticoagulants; Z87.442 Personal history of urinary calculi
CPT/HCPCS: 36415; 71045; 71275; 80048; 80053; 80202; 81001; 82565; 82728; 82948; 83615; 83735; 83880; 84460; 85025; 85380; 85610; 86140; 87040; 87147; 87181; 87186; 93005; 94618; 94640; 96365; 96366; 96367; 96375; 96376; 97110; 97116; 97161; 97165; 97535; 99291; A9270; G0378; J0456; J1100; J1815; J1940; J1956; J3370; Q9967

== ENCOUNTER 2022-04-07 14:25 | Outpatient (CLI) | payer MEDICARE, SELFPAY | END 2022-04-07 14:26 | disposition home or self-care (01) | LOC: ANHAUDIO 14:28 | PROVIDERS: PCP Physician Assistant; Visit Provider Physician Assistant | DX: H91.90 Unspecified hearing loss, unspecified ear (principal) | CPT/HCPCS: 99199 ==

== ENCOUNTER 2022-09-11 15:35 | Outpatient (CLI) | payer MEDICARE, SELFPAY ==
--- NOTE | ~2022-09-11 | XR_ITS ---
Clinical Indication: CHF PA and lateral views of the chest: Comparison: 10/21/2021 Findings: Small right pleural effusion is present. Left lung clear. Cardiomediastinal silhouette is within normal limits. Bones and soft tissues are unremarkable. Impression: Small right pleural effusion. Reviewed, dictated and finalized at location [] REL MANUFACTURE INSTRUCTOR Impression: Small right pleural effusion.
== END 2022-09-11 15:36 | disposition home or self-care (01) ==
PROVIDERS: PCP Physician Assistant; Visit Provider Internal Medicine Cardiovascular Disease
DX: I50.22 Chronic systolic (congestive) heart failure (principal); J90 Pleural effusion, not elsewhere classified
CPT/HCPCS: 71046

== ENCOUNTER 2022-10-31 09:39 | Outpatient (CLI) | payer MEDICARE, SELFPAY ==
--- NOTE | ~2022-10-31 | XR_ITS ---
Clinical Indication: Systolic heart failure, hypertension PA and lateral views of the chest: Comparison: 09/11/2022 Findings: There is probable chronic blunting of the right costophrenic angle versus small right pleur al effusion. Left lung clear. Cardiomediastinal silhouette is within normal limits. Bones and soft t issues are unremarkable. Impression: . Probable chronic blunting of the right costophrenic angle versus small right pleural effusion. Reviewed, dictated and finalized at location M. COUNSELOR Impression: . Probable chronic blunting of the right costophrenic angle versus small right pleural effusion.
== END 2022-10-31 09:40 | disposition home or self-care (01) ==
PROVIDERS: PCP Physician Assistant; Visit Provider Internal Medicine Cardiovascular Disease
DX: I50.22 Chronic systolic (congestive) heart failure (principal); R91.8 Other nonspecific abnormal finding of lung field
CPT/HCPCS: 71046

== ENCOUNTER 2023-03-25 14:08 | Emergency (ER) | payer MEDICARE, SELFPAY ==
--- NOTE | ~2023-03-25 | CT_ITS ---
EXAMINATION: CT abdomen pelvis w con DATE: 03/25/2023 16:28 INDICATION: Left lower quadrant abdominal and flank pain TECHNIQUE: Computed tomography (CT) of the abdomen and pelvis was performed with 100 mL Omnipaque-350 intravenous contrast. Automated exposure control and iterative reconstruction technique were employe d. The dose-length product was 1423.30 mGy-cm. COMPARISON: CT abdomen pelvis 08/04/[address] dated 09/14/2022 FINDINGS: The seminal enhancing pleura along the margins of a small likely exudative right pleural effusion. . Small region of consolidation in the posterior right lower lobe along with some blunting loss most li henry representing round atelectasis. There is additional more bandlike discoid atelectasis/scarring i n the right middle lobe. Visualized left lower lung is clear. Heart size is normal. No pericardial ef fusion. Liver, gallbladder, spleen, pancreas and bilateral adrenal glands are normal. Bilateral nonob structing nephrolithiasis, the largest stone measuring 7 mm in maximal diameter in the inferior right kidney. There are regions of cortical scarring in both kidneys, likely sequela of prior infection or infarction. 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 Mild wall t hickening in the bladder which may be related to partially decompressed state although differential i ncludes cystitis. Uterus and bilateral adnexa are unremarkable. Bowels including the appendix are nor mal. No free intraperitoneal gas or fluid. No pathologically enlarged abdominal or pelvic lymphadenop athy. Moderate left and severe right hip osteoarthritis. Moderate lower thoracic, mild lumbar and sev ere lumbosacral spondylosis. There are bridging osteophytes at multiple levels in the spine, consiste nt with diffuse idiopathic skeletal hyperostosis (DISH). IMPRESSION: 1. Bilateral nonobstructing nephrolithiasis. 2. Mild pleural enhancement along the periphery of a small likely exudative right pleural effusion wi th adjacent round atelectasis in the right lower lobe. 3. Wall thickening the bladder likely related to partially decompressed state but would correlate wit h urinalysis. Reviewed, dictated and finalized at location A. IMPRESSION: 1. Bilateral nonobstructing nephrolithiasis. 2. Mild pleural enhancement along the periphery of a small likely exudative rig ht pleural effusion with adjacent round atelectasis in the right lower lobe. 3. Wall thickening the bladder likely related to partially decompressed state b ut would correlate with urinalysis.
[2023-03-25 14:19] VITALS: BP 109/62; PULSE 73; RESP 18; TEMP 36.4; O2SAT 95
--- NOTE | 2023-03-25 14:44 | ED.ABDPAIN ---
HPI - Abdominal Pain General Chief Complaint: Abdominal Pain Stated Complaint: L side pain Time Seen by Provider: 03/25/23 14:34 History of Present Illness HPI narrative: Patient is 72-year-old female here for evaluation of left-sided abdominal pain x1 day. Patient states that the pain starts in her left flank and wraps around to her front. Reports some nausea but no vomiting. No fevers or chills, constipation or diarrhea. Has a history of kidney stone and states her symptoms today feel similar. Related Data Home Medications Medication Instructions Recorded Confirmed metformin 500 mg tablet 500 mg PO DAILY 08/11/19 01/30/22 metoprolol succinate 25 mg 25 mg PO DAILY 08/11/19 01/30/22 tablet,extended release 24 hr rivaroxaban 20 mg tablet (Xarelto) 20 mg PO QPM 08/11/19 01/30/22 dulaglutide 1.5 mg/0.5 mL 1.5 mg subcut WEEKLY 10/03/21 01/30/22 subcutaneous pen injector (Trulicity) duloxetine 60 mg capsule,delayed 60 mg PO QPM 10/03/21 01/30/22 release furosemide 40 mg tablet 40 mg PO DAILY 10/03/21 01/30/22 triamcinolone acetonide 0.1 % 1 applic topical DAILY PRN Rash 10/03/21 01/30/22 topical cream sacubitril 49 mg-valsartan 51 mg 1 tablet PO BID 02/19/22 01/30/22 tablet (Entresto) Allergies Allergy/AdvReac Type Severity Reaction Status Date / Time Cephalosporins Allergy Severe Rash/swelli Verified 03/25/23 14:32 ng Penicillins Allergy Hives Verified 03/25/23 14:32 Review of Systems Review of Systems: Gen: Denies fevers or chills Eyes: Denies eye pain or visual change ENT: Denies congestion Respiratory: Denies shortness of breath or cough CV: Denies chest pain or palpitations GI: Reports abdominal pain and nausea : denies burning, urgency, frequency or hematuria Musculoskeletal: Denies back pain or muscle pain Neuro: Denies numbness, tingling, weakness or focal weakness Skin: Denies rash Except as documented, all other systems reviewed and negative [facility] Past Medical History Medical History Anesthesia complication 1973 Atrial fibrillation Atrial fibrillation CHF (congestive heart failure) CHF (congestive heart failure) Depression Diabetes type 2, controlled DJD of left shoulder Hypertension Renal stones Type 2 diabetes mellitus Surgical History Surgical History History of 1973 and 1976 Family History Family History (Updated 02/19/22 @ 08:10 by Michelle Carbajal MA) Son Diabetes mellitus Grandparent Diabetes mellitus Father Manic-depressive disorder ETOH abuse Other Family history of arthritis Family history of depression Social History Social History (Updated 02/19/22 @ 08:11 by Michelle Carbajal MA) Smoking status: Never smoker Alcohol intake: never Substance use: never Occupation/Education: retired Gender identity (if verbalized by the patient): Female Spiritual care concerns: No Exam Narrative: APPEARANCE: No acute distress, nontoxic, resting in bed EYES: EOMI HEENT: Normocephalic, atraumatic, OMM RESPIRATORY: No respiratory distress Clear to auscultation bilaterally with no rhonchi wheezing or rales. CARDIOVASCULAR: Regular rate and rhythm without murmurs rubs or gallops. ABDOMINAL: Left-sided CVA tenderness. Soft, nontender, nondistended, no rebound or guarding MUSCULOSKELETAl: Moves all extremities. NEURO: Awake and alert. Following commands, speech normal, no focal deficits SKIN:: Warm, dry. No rashes lesions or abrasions PSYCHIATRIC: Normal affect/mood, Course Vital Signs Vital signs: Vital Signs Temperature 97.5 F L 03/25/23 14:19 Pulse Rate 73 03/25/23 14:19 Respiratory Rate 18 03/25/23 14:19 Blood Pressure 109/62 03/25/23 14:19 Pulse Oximetry 95 03/25/23 14:19 Oxygen Delivery Room Air 03/25/23 14:19 Temperature 97.5 F L 03/25/23 14:19 Pulse Rate 73
[2023-03-25 15:04] LABS: Basophils Absolute Auto 0.1 K/mm3 (0.0-0.1); Basophils Percent Auto 1.2 % (0.2-1.2); Eosinophils Absolute Auto 0.2 K/mm3 (0-0.3); Eosinophils Percent Auto 1.9 % (0-4.4); Hematocrit 37.6 % (37.0-47.0); Hemoglobin 11.8 g/dL (12.0-15.0); Immature Granulocyte Absolute 0.04 K/mm3 (0.00-0.031); Immature Granulocyte Percent A 0.5 % (0-0.5); Lymphocytes Absolute Auto 2.72 K/mm3 (0.9-3.2); Mean Corpuscular HGB Conc 31.4 g/dl (32-36); Mean Corpuscular Hemoglobin 27.1 pg (26-34); Mean Corpuscular Volume 86.4 fl (80-100); Mean Platelet Volume 9.3 fl (7.4-10.4); Monocytes Absolute Auto 0.8 K/mm3 (0.1-0.6); Monocytes Percent Auto 9.5 % (2.6-8.5); Neutrophils Absolute Auto 4.2 K/mm3 (1.3-6.7); Neutrophils Percent Auto 52.9 % (45.5-73.1); Platelet Count Result 298 k/mm3 (150-375); Red Blood Count 4.35 M/mm3 (4.2-5.4); Red Cell Distribution Width 13.8 % (11.5-14.5)
[2023-03-25] MEDS: ONDANSETRON INJ 4 MG/2 ML VIAL IV PUSH (15:13)
[2023-03-25 15:14] LABS: Alanine Aminotransferase 11 U/L (6-35); Albumin Level 3.5 g/dL (3.5-5.1); Alkaline Phosphatase 100 U/L (38-126); Anion Gap 5 mmol/L (8-16); Aspartate Amino Transferase 17 U/L (14-36); Bilirubin,Total 0.6 mg/dL (0.2-1.3); Blood Urea Nitrogen 13 mg/dL (7-17); Calcium 8.9 mg/dL (8.4-10.2); Carbon Dioxide 31 mmol/L (22-30); Chloride 104 mmol/L (98-107); Estimated Glomerular Filt Rate > 60; Glucose 147 mg/dL (65-110); Potassium 3.5 mmol/L (3.4-5.0); Sodium 140 mmol/L (137-145)
[2023-03-25 15:15] LABS: Lactic Acid Reflex 1.3 mmol/L (0.7-2.0)
[2023-03-25] MEDS: MORPHINE SULFATE (*CRX) 2 MG/ML INJ IV PUSH (15:15)
[2023-03-25 15:33] LABS: Appearance Urine Cloudy (Clear); Bilirubin Urine Negative (Negative); Blood Urine Negative (Negative); Color Urine Yellow (Yellow); Glucose Urine UA Trace mg/dL (Negative); Ketones Urine Negative (Negative); Leukocyte Esterase Ur Trace LEU/UL (Negative); Nitrate Urine Negative (Negative); Protein Urine Trace mg/dL (Negative); Specific Grav Ur 1.016 (1.001-1.035); Urobilinogen Urine 0.2 mg/dL (<2.0); WBC Urine 0-5 /hpf; pH Urine 6.5 (5.0-9.0)
[2023-03-25 15:34] LABS: Bacteria Urine 2+ /hpf; Non Pathogenic Casts 0-2; Squamous Epithelial Cell Urine Many /hpf (Few)
[2023-03-25 15:43] LABS: Add Urine Microscopic? YES
[2023-03-25 17:30] VITALS: BP 142/84; PULSE 86; RESP 16; O2SAT 98
== END 2023-03-25 17:31 | disposition home or self-care (01) ==
PROVIDERS: Emergency Provider Physician Assistant; PCP Physician Assistant
DX: N39.0 Urinary tract infection, site not specified (principal); I11.0 Hypertensive heart disease with heart failure; I50.9 Heart failure, unspecified; I48.91 Unspecified atrial fibrillation; E11.9 Type 2 diabetes mellitus without complications
CPT/HCPCS: 36415; 74177; 80053; 81001; 83605; 85025; 96374; 96375; 99284; J2270; J2405; Q9967

== ENCOUNTER 2023-06-03 07:53 | Emergency (ER) | payer MEDICARE, SELFPAY ==
--- NOTE | ~2023-06-03 | CT_ITS ---
EXAMINATION: CT abdomen pelvis w con DATE: 06/03/2023 10:09 INDICATION: Right flank pain. Kidney stone. TECHNIQUE: Computed tomography (CT) of the abdomen and pelvis was performed with 100 mL Omnipaque 350 intravenous contrast. Automated exposure control and iterative reconstruction technique were employe d. The dose-length product was 1417.64 mGy-cm. COMPARISON: CT abdomen and pelvis 03/25/2023 FINDINGS: The visualized portions of the lung bases demonstrate a small right pleural effusion with p leural thickening. There are chronic peripheral airspace opacities in right lower lobe and right midd le lobe, consistent with rounded atelectasis. Calcified right lung nodules are consistent with old gr anulomatous disease. The heart size is normal. No pericardial effusion. The liver, gallbladder, splee n, pancreas, and adrenal glands are normal. There is mild atrophy of the kidneys. There are 5 stones in right kidney measuring up to 9 mm. There are two 2 mm stones in left kidney. There are no dilated loops of bowel. The appendix is normal. There are no pathologically enlarged lymph nodes. There is no free intraperitoneal fluid. There is severe osteoarthritis of the hip joints. There are bridging end plate osteophytes at multiple levels in the spine, consistent with diffuse idiopathic skeletal hypero stosis (DISH). There is moderate lumbar spondylosis. IMPRESSION: 1. Bilateral nonobstructing kidney stones. 2. Chronic small right pleural effusion. Reviewed, dictated and finalized at location A.
[2023-06-03 08:04] VITALS: BP 133/65; PULSE 65; RESP 14; TEMP 36.5; O2SAT 97
[2023-06-03 08:18] LABS: Basophils Absolute Auto 0.1 K/mm3 (0.0-0.1); Basophils Percent Auto 1.1 % (0.2-1.2); Eosinophils Absolute Auto 0.2 K/mm3 (0-0.3); Eosinophils Percent Auto 2.7 % (0-4.4); Hematocrit 39.2 % (37.0-47.0); Hemoglobin 12.1 g/dL (12.0-15.0); Immature Granulocyte Absolute 0.01 K/mm3 (0.00-0.031); Immature Granulocyte Percent A 0.2 % (0-0.5); Lymphocytes Absolute Auto 2.22 K/mm3 (0.9-3.2); Lymphocytes Percent Auto 35.6 % (18.3-44.2); Mean Corpuscular HGB Conc 30.9 g/dl (32-36); Mean Corpuscular Hemoglobin 27.4 pg (26-34); Mean Corpuscular Volume 88.9 fl (80-100); Mean Platelet Volume 9.1 fl (7.4-10.4); Monocytes Absolute Auto 0.8 K/mm3 (0.1-0.6); Monocytes Percent Auto 12.7 % (2.6-8.5); Neutrophils Percent Auto 47.7 % (45.5-73.1); Platelet Count Result 248 k/mm3 (150-375); Red Blood Count 4.41 M/mm3 (4.2-5.4); Red Cell Distribution Width 13.9 % (11.5-14.5); White Blood Count 6.2 K/mm3 (4.5-10.0)
[2023-06-03 08:30] LABS: Alanine Aminotransferase 12 U/L (6-35); Albumin Level 3.9 g/dL (3.5-5.1); Alkaline Phosphatase 87 U/L (38-126); Anion Gap 6 mmol/L (8-16); Aspartate Amino Transferase 21 U/L (14-36); Bilirubin,Total 0.5 mg/dL (0.2-1.3); Blood Urea Nitrogen 13 mg/dL (7-17); Calcium 8.9 mg/dL (8.4-10.2); Carbon Dioxide 31 mmol/L (22-30); Chloride 102 mmol/L (98-107); Estimated CRCL calculation 50 ml/min; Estimated Glomerular Filt Rate 55; Glucose 174 mg/dL (65-110); Lipase 244 U/L (23-300); Potassium 3.6 mmol/L (3.4-5.0); Sodium 139 mmol/L (137-145)
[2023-06-03 09:14] VITALS: BP 134/56; O2SAT 97
--- NOTE | 2023-06-03 09:16 | ED.BACK ---
HPI - Back Pain/Injury General Chief Complaint: Back Pain/Injury Stated Complaint: left side pain Time Seen by Provider: 06/03/23 09:01 History of Present Illness HPI Narrative: 72-year-old female with a history of ureteric lithiasis, type 2 diabetes, CHF, atrial fibrillation reports for evaluation for left flank that radiates to her left lower abdomen pain since 0200 this morning. Patient states she felt a dull ache in her left lower back yesterday that was not bothering her, however sharp pain woke up this morning. She states that it is waxing and waning and feels similar to her prior kidney stones. She also reports decreased urine output today. Denies dysuria or hematuria, fever, body aches or chills, abdominal pain, nausea or vomiting, diarrhea, recent injury or trauma. Last bowel movement was today normal. Patient is also reporting multiple lesions to her left flank and left lower abdomen described as burning x4 days. Patient states 5 days ago, she sat at a park bench and thinks she may have sat in a spiders nest because she later developed these lesions which she believes is bug bites. States that the bites have been draining a clear substance and are very tender to palpation. Denies history of shingles. Related Data Home Medications Medication Instructions Recorded Confirmed metformin 500 mg tablet 500 mg PO DAILY 08/11/19 01/30/22 metoprolol succinate 25 mg 25 mg PO DAILY 08/11/19 01/30/22 tablet,extended release 24 hr rivaroxaban 20 mg tablet (Xarelto) 20 mg PO QPM 08/11/19 01/30/22 dulaglutide 1.5 mg/0.5 mL 1.5 mg subcut WEEKLY 10/03/21 01/30/22 subcutaneous pen injector (Trulicity) duloxetine 60 mg capsule,delayed 60 mg PO QPM 10/03/21 01/30/22 release furosemide 40 mg tablet 40 mg PO DAILY 10/03/21 01/30/22 triamcinolone acetonide 0.1 % 1 applic topical DAILY PRN Rash 10/03/21 01/30/22 topical cream sacubitril 49 mg-valsartan 51 mg 1 tablet PO BID 02/19/22 01/30/22 tablet (Entresto) Allergies Allergy/AdvReac Type Severity Reaction Status Date / Time Cephalosporins Allergy Severe Rash/swelli Verified 03/25/23 14:32 ng Penicillins Allergy Hives Verified 03/25/23 14:32 Review of Systems Review of Systems: CONSTITUTIONAL: Denies fever, chills EYES: Denies visual changes, redness, or discharge. ENT: Denies rhinorrhea, congestion, sore throat, or otalgia. CARDIOVASCULAR: Denies chest pain, palpitations, or edema. RESPIRATORY: Denies cough or dyspnea. GASTROINTESTINAL: See HPI GENITOURINARY: Denies dysuria or hematuria. SKIN: See HPI MUSCULOSKELETAL: Denies back pain, joint pain, or myalgia. NEUROLOGIC: Denies headache, numbness, dizziness, or weakness. PSYCHIATRIC: Denies anxiety or depression. [facility] Past Medical History Medical History Anesthesia complication 1973 Atrial fibrillation Atrial fibrillation CHF (congestive heart failure) CHF (congestive heart failure) Depression Diabetes type 2, controlled DJD of left shoulder Hypertension Renal stones Type 2 diabetes mellitus Surgical History Surgical History History of 1973 and 1976 Family History Family History Son Diabetes mellitus Grandparent Diabetes mellitus Father Manic-depressive disorder ETOH abuse Other Family history of arthritis Family history of depression Social History Social History Smoking status: Never smoker Alcohol intake: never Substance use: never Occupation/Education: retired Gender identity (if verbalized by the patient): Female Spiritual care concerns: No Exam Narrative: GENERAL: Well-appearing, in no acute distress. Patient resting comfortably in exam bed. She is pleasant and conversational. HEAD: Normocephalic EYES: P
[2023-06-03] MEDS: ACETAMINOPHEN 500 MG TABLET 1000 MG PO (09:55)
[2023-06-03] MEDS: SODIUM CHLORIDE 0.9% IV 1,000 ML 999 ML IV CONT (09:55)
[2023-06-03] MEDS: CYCLOBENZAPRINE HCL 10 MG TABLET 5 MG PO (11:24)
[2023-06-03 11:27] VITALS: BP 144/72; PULSE 78; RESP 18; O2SAT 100
[2023-06-03 12:08] LABS: Add Urine Microscopic? YES; Appearance Urine Clear (Clear); Bacteria Urine 4+ /hpf; Bilirubin Urine Negative (Negative); Blood Urine Negative (Negative); Color Urine Yellow (Yellow); Glucose Urine UA Negative (Negative); Hyaline Casts Urine Present /lpf; Ketones Urine Negative (Negative); Leukocyte Esterase Ur Negative LEU/UL (Negative); Nitrate Urine Positive (Negative); Non Pathogenic Casts 0-2; Protein Urine Negative (Negative); RBC Urine 0-2 /hpf (0-2); Specific Grav Ur 1.031 (1.001-1.035); Squamous Epithelial Cell Urine Few /hpf (Few); Urobilinogen Urine 0.2 mg/dL (<2.0); WBC Urine 0-5 /hpf; pH Urine 6.5 (5.0-9.0)
[2023-06-03] MEDS: LIDOCAINE 5% PATCH 1 PATCH TRANSDERM (13:39)
[2023-06-03] MEDS: [UNRECOGNIZED DRUG - OTHER] 1 EACH XX (13:40)
[2023-06-03 13:41] VITALS: BP 165/57; PULSE 53; RESP 18; O2SAT 100
[2023-06-03] MEDS: valACYclovir HCL 500 MG TABLET 1000 MG PO (13:41)
[2023-06-03] MEDS: ACYCLOVIR 400 MG TABLET 800 MG PO (14:00)
[2023-06-03] MEDS: HYDROmorphone HCL INJ (*CRX) 1 MG/ML SYR 0.5 MG IV PUSH (14:08)
[2023-06-03 14:29] VITALS: BP 122/54; PULSE 77; RESP 18; O2SAT 99
== END 2023-06-03 14:44 | disposition home or self-care (01) ==
PROVIDERS: Preventive Medicine Aerospace Medicine; Emergency Provider Physician Assistant; PCP Physician Assistant
DX: B02.9 Zoster without complications (principal); R10.32 Left lower quadrant pain; I48.91 Unspecified atrial fibrillation; I50.9 Heart failure, unspecified; I11.0 Hypertensive heart disease with heart failure; E11.9 Type 2 diabetes mellitus without complications; Z87.442 Personal history of urinary calculi; M19.012 Primary osteoarthritis, left shoulder; Z79.84 Long term (current) use of oral hypoglycemic drugs; Z79.01 Long term (current) use of anticoagulants; Z79.85 Long-term (current) use of injectable non-insulin antidiabetic drugs; N20.0 Calculus of kidney
CPT/HCPCS: 36415; 74177; 80053; 81001; 83690; 85025; 87086; 87147; 87181; 87186; 96374; 99284; A9270; J1170; J7030; Q9967

== ENCOUNTER 2024-05-10 15:31 | Outpatient (CLI) | payer MEDICARE, SELFPAY ==
--- NOTE | ~2024-05-10 | US_ITS ---
RIGHT LOWER EXTREMITY VENOUS ULTRASOUND Ordering provider: Jennifer Mathis, JENSEN History: . Rt Calf pain . Comparison: None. FINDINGS: --COMMON FEMORAL: Patent and free of thrombus. Normal compressibility, phasic flow and augmentation. --PROXIMAL SUPERFICIAL FEMORAL: Patent and free of thrombus. Normal compressibility, phasic flow and augmentation. --DISTAL SUPERFICIAL FEMORAL: Patent and free of thrombus. Normal compressibility, phasic flow and au gmentation. --POPLITEAL: Patent and free of thrombus. Normal compressibility, phasic flow and augmentation. --POSTERIOR TIBIAL: Patent and free of thrombus. Normal compressibility, phasic flow and augmentation . IMPRESSION: Negative right lower extremity venous US. No deep vein thrombosis. Reviewed, dictated and finalized at location A.
== END 2024-05-10 15:32 | disposition home or self-care (01) ==
PROVIDERS: PCP Physician Assistant; Visit Provider Physician Assistant
DX: M79.661 Pain in right lower leg (principal)
CPT/HCPCS: 93971

== ENCOUNTER 2024-07-04 07:18 | Outpatient (CLI) | payer MEDICARE, SELFPAY ==
--- NOTE | ~2024-07-04 | CT_ITS ---
CT of the Abdomen and Pelvis: Indication: Positive colorectal cancer screening Technique: 2.5 mm axial scans were obtained through the abdomen and pelvis following intravenous adm inistration of 100 cc of Omnipaque 350. Dose reduction technique was used on this scan by utilizing a utomated exposure control and iterative reconstruction technique. The dose-length product (DLP) was 1 185.69 mGy-cm. COMPARISON: 06/03/2023 Findings: Scans through the lung bases demonstrated small right pleural effusion with probable chron ic rounded right basilar atelectasis.. The liver, spleen, pancreas, gallbladder, adrenal glands are within normal limits. Bilateral nonobstr ucting renal stones are present. There are atherosclerotic calcifications of the aorta. No lymphaden opathy. No bowel obstruction or bowel wall thickening. There is no evidence to suggest acute appendicitis. Images through the pelvis were performed. There is diffuse urinary bladder wall thickening. No adnexa l mass seen. No ascites. Degenerative spondylosis of the lumbar spine present. There is severe degene rative change of both hip joints, right worse than left. Impression: No CT evidence for colonic adenocarcinoma or bowel obstruction. Cystitis. Bilateral nonobstructing nephrolithiasis. Stable small chronic right pleural effusion with rounded right basilar atelectasis. Reviewed, dictated and finalized at location . Impression: No CT evidence for colonic adenocarcinoma or bowel obstruction. Cystitis. Bilateral nonobstructing nephrolithiasis. Stable small chronic right pleural effusion with rounded right basilar atelecta sis.
[2024-07-04 07:56] LABS: Estimated Glomerular Filt Rate 34
== END 2024-07-04 07:19 | disposition home or self-care (01) ==
PROVIDERS: PCP Physician Assistant; Visit Provider Physician Assistant
DX: R63.4 Abnormal weight loss (principal); R19.5 Other fecal abnormalities; J90 Pleural effusion, not elsewhere classified; N20.0 Calculus of kidney; N30.90 Cystitis, unspecified without hematuria
CPT/HCPCS: 74177; Q9967